=== PATIENT | female | born 1985 | race Caucasian/White ===

== ENCOUNTER 2016-12-13 19:06 | Inpatient (IN) | payer SELFPAY ==
[~2016-12-13] VITALS: Ht 152.4 cm; Wt 120.1 kg
[~2016-12-13 19:06] MED LIST: AMLO5TAB22 PO; HYDR50TA15 PO; NAPR-573 PO
[2016-12-13 19:19] VITALS: BP 246/159; PULSE 113; RESP 18; TEMP 100.6; O2SAT 96
[2016-12-13 19:51] VITALS: BP 242/110; PULSE 108; RESP 18; TEMP 98.5; O2SAT 96
[2016-12-13] MEDS ORDERED: LISI-515 PO (20:10)
[2016-12-13] MEDS ORDERED: HYDR50TA15 PO (20:10)
[2016-12-13] MEDS ORDERED: METO50TA PO (20:10)
[2016-12-13] MEDS ORDERED: SERT25TA83 PO (20:10)
[2016-12-13] MEDS ORDERED: METF500T PO (20:10)
[2016-12-13] MEDS ORDERED: cloNIDine HCL 0.2 MG TAB PO ONE (20:30)
[2016-12-13 21:09] VITALS: BP 227/96; PULSE 110; RESP 18; O2SAT 98
[2016-12-13 21:10] LABS: BLOOD, URINE NEG (NEG); GLUCOSE,URINE NEG (NEG); KETONE, URINE NEG (NEG); NITRITE,URINE NEG (NEG)
[2016-12-13 21:11] LABS: AUTOMATED NEUTROPHIL # 4.3 TH/MM3 (1.8-7.7); BASOPHIL % 0.5 % (0.0-2.0); EOSINOPHIL # 0.1 TH/MM3 (0-0.4); EOSINOPHIL % 1.3 % (0.0-4.0); HEMATOCRIT 34.6 % (35.0-46.0); LYMPHOCYTE # 0.7 TH/MM3 (1.0-4.8); MEAN CELL VOLUME 67.9 FL (80.0-100.0); MEAN CORPUSCULAR HEMOGLOBIN 22.1 PG (27.0-34.0); MEAN CORPUSCULAR HGB CONC 32.6 % (32.0-36.0); MONO % 9.3 % (0.0-8.0); NEUT % 76.9 % (16.0-70.0); PLATELET COUNT 192 TH/MM3 (150-450); RED CELL DISTRIBUTION WIDTH 17.2 % (11.6-17.2); WHITE BLOOD COUNT 5.6 TH/MM3 (4.0-11.0)
[2016-12-13 21:14] LABS: HEMO FLAGS AUTO DIFF
[2016-12-13] MEDS ORDERED: ACETAMINOPHEN/HYDROcodone 325 MG/5 MG TAB PO ONE (21:15)
--- NOTE | 2016-12-13 21:15 | RADHPO ---
EXAM DATE/TIME: 12/13/2016 20:33 [facility] COMPARISON: No previous studies available for comparison. INDICATIONS : Patient states cough and congestion. MEDICAL HISTORY : Hypertension. SURGICAL HISTORY : None. ENCOUNTER: Initial ACUITY: 3 days PAIN SCORE: 1/10 LOCATION: Bilateral chest FINDINGS: A single view of the chest demonstrates the lungs to be symmetrically aerated without evidence of mas s, infiltrate or effusion. The cardiomediastinal contours are unremarkable. Osseous structures are intact. CONCLUSION: No acute disease. Jonh Gregory MD FACR on December 13, 2016 at 21:13 Board Certified Radiologist. This report was verified electronically.
[2016-12-13 21:20] LABS: BICARBONATE 29.4 MEQ/L (21.0-32.0); MAGNESIUM 1.7 MG/DL (1.5-2.5)
[2016-12-13 21:22] LABS: URINE COLOR YELLOW (YELLW/STRAW)
[2016-12-13 21:23] LABS: COMMENT (UR) CULT NOT INDICATED; CULTURE IF INDICATED CULT NOT INDICATED; SQUAMOUS EPITHELIAL CELL URINE 0-5 /hpf (0-5); WBC, URINE 0-2 /hpf (0-5)
[2016-12-13] MEDS ORDERED: POTASSIUM CHLORIDE 10 MEQ CONTROLLED RELEASE TAB PO ONE (21:30)
[2016-12-13 21:34] LABS: SCAN/DIFF AUTO DIFF CONFIRMED
[2016-12-13] MEDS ORDERED: hydrALAZINE HCL 50 MG TAB PO ONE (21:45)
--- NOTE | 2016-12-13 21:50 | PD ---
HPI Chief Complaint: Cold / Flu Symptoms Time Seen by Provider: 20:16 Travel History International Travel<30 days: No Contact w/Intl Traveler<30days: No Traveled to known affect area: No History of Present Illness HPI This 31-year-old female says she is at some pressure in her chest and sore throat for throughout the day. She has a history of hypertension since he age of 2. She is on 3 medications now and says she will be taking them. He is having some sinus congestion and headache. She does not smoke. She has no history of heart disease. She has had this pressure in her chest past. Does not seem aggravated by exertion. There is no radiation. There is been no diaphoresis PFSH Past Medical History Depression: Yes Cardiovascular Problems: Yes Diabetes: No Diminished Hearing: No Hypertension: Yes (SINCE CHILDHOOD) Reproductive: Yes (POLYCYSTIC OVARIAN SYNDROME) Immunizations Current: Yes Migraines: Yes (FROM CHILDHOOD) Tetanus Vaccination: Unknown Influenza Vaccination: No ?: Not LMP: 2 WEEKS AGO : 0 Ovarian Cysts: Yes Social History Alcohol Use: No Tobacco Use: No Substance Use: No Allergies-Medications (Allergen,Severity, Reaction): Coded Allergies: No Known Allergies (Verified , 12/13/16) Reported Meds & Prescriptions Reported Meds & Active Scripts Active Reported Metoprolol Tartrate 50 Mg Tab 50 Mg PO BID Sertraline (Sertraline HCl) 25 Mg Tab 25 Mg PO DAILY Metformin (Metformin HCl) 500 Mg Tab 500 Mg PO BIDPC With meals Lisinopril 20 Mg Tab 20 Mg PO DAILY Hydralazine (Hydralazine HCl) 50 Mg Tab 50 Mg PO TID Take with a meal Review of Systems General / Constitutional: No: Fever, Chills Eyes: No: Diploplia HENT: Positive: Sore Throat, No: Headaches Cardiovascular: Positive: Chest Pain or Discomfort Respiratory: Positive: Cough, No: Shortness of Breath Gastrointestinal: No: Nausea, Vomiting Genitourinary: No: Urgency, Frequency Musculoskeletal: No: Myalgias Physical Exam Narrative GENERAL: Well-developed female initial blood pressure is 246/159 SKIN: Warm and dry. HEAD: Atraumatic. Normocephalic. EYES: Pupils equal and round. No scleral icterus. No injection or drainage. ENT: No nasal bleeding or discharge. Mucous membranes pink and moist. NECK: Trachea midline. No JVD. CARDIOVASCULAR: Regular rate and rhythm. No murmur appreciated. RESPIRATORY: No accessory muscle use. Clear to auscultation. Breath sounds equal bilaterally. GASTROINTESTINAL: Abdomen soft, non-tender, nondistended. Hepatic and splenic margins not palpable. MUSCULOSKELETAL: No obvious deformities. No clubbing. No cyanosis. No edema. NEUROLOGICAL: Awake and alert. No obvious cranial nerve deficits. Motor grossly within normal limits. Normal speech. PSYCHIATRIC: Appropriate mood and affect; insight and judgment normal. Data Data Last Documented VS Vital Signs Date Time Temp Pulse Resp B/P Pulse Ox O2 Delivery O2 Flow Rate FiO2 12/13/16 21:09 110 18 227/96 98 Room Air 12/13/16 19:51 98.5 Orders Electrocardiogram (12/13/16 20:18) Complete Blood Count With Diff (12/13/16 20:18) Basic Metabolic Panel (Bmp) (12/13/16 20:18) Troponin I (12/13/16 20:18) B-Type Natriuretic Peptide (12/13/16 20:18) Urinalysis - C+S If Indicated (12/13/16 20:18) Magnesium (Mg) (12/13/16 20:18) Chest, Single Ap (12/13/16 20:18) Clonidine (Catapres) (12/13/16 20:30) Acetamin-Hydrocod 325-5 Mg ([place] 5-325 (12/13/16 21:15) Potassium Chloride (Kcl) (12/13/16 21:30) Hydralazine (Apresoline) (12/13/16 21:45) Labs Laboratory Tests Test 12/13/16 12/13/16 21:00 21:05 Urine Color YELLOW Urine Turbidity CLEAR Urine pH 6.0 Urine Specific [place] 1.020 Urine Protein 100 mg/dL Urine Glucose (UA) NEG mg/dL Urine Ketones NEG mg/dL Urine Occult Blood NEG Urine Nitrite NEG Urine Bilirubin NEG Urine Leukocyte Esterase TRACE Urine WBC 0-2 /hpf Urine Squamous Epithelial 0-5 /hpf Cells Microscopic Urinalysis Comment CULT NOT INDICATED White Blood Count 5.6 TH/MM3 Red Blood Count 5.10 MIL/MM3 Hemoglobin 11.3 GM/DL Hematocrit 34.6 % Mean Corpuscular Volume 67.9 FL Mean Corpuscular Hemoglobin 22.1 PG Mean Corpuscular Hemoglobin 32.6 % Concent Red Cell Distribution Width 17.2 % Platelet Count 192 TH/MM3 Mean Platelet Volume 8.8 FL Neutrophils (%) (Auto) 76.9 % Lymphocytes (%) (Auto) 12.0 % Monocytes (%) (Auto) 9.3 % Eosinophils (%) (Auto) 1.3 % Basophils (%) (Auto) 0.5 % Neutrophils # (Auto) 4.3 TH/MM3 Lymphocytes # (Auto) 0.7 TH/MM3 Monocytes # (Auto) 0.5 TH/MM3 Eosinophils # (Auto) 0.1 TH/MM3 Basophils # (Auto) 0.0 TH/MM3 CBC Comment AUTO DIFF Differential Comment AUTO DIFF CONFIRMED Sodium Level 138 MEQ/L Potassium Level 3.0 MEQ/L Chloride Level 100 MEQ/L Carbon Dioxide Level 29.4 MEQ/L Anion Gap 9 MEQ/L Blood Urea Nitrogen 15 MG/DL Creatinine 0.93 MG/DL Estimat Glomerular Filtration 70 ML/MIN Rate Random Glucose 161 MG/DL Calcium Level 8.6 MG/DL Magnesium Level 1.7 MG/DL Troponin I 0.06 NG/ML B-Type Natriuretic Peptide 135 PG/ML [facility] Medical Decision Making Medical Screen Exam Complete: No Emergency Medical Condition: No Medical Record Reviewed: No Differential Diagnosis Differential includes CHF, hypertension, URI Narrative Course Chest x-rays read as negative. EKG shows sinus rhythm. There is left ventricular hypertrophy with ST T-wave changes. Her potassium is low at 3.0. She was given clonidine and her blood pressures come down to 185/95. Of note her troponin is 0.06. Diagnosis Primary Impression: Hypertension Qualified Code: I10 - Essential hypertension Additional Impression: Elevated troponin Toan Watson MD Dec 13, 2016 21:50
[2016-12-13] MEDS ORDERED: ACETAMINOPHEN 325 MG TAB PO PRN (22:30)
[2016-12-13] MEDS ORDERED: cloNIDine HCL 0.1 MG TAB PO PRN (22:30)
[2016-12-13] MEDS ORDERED: ZOLPIDEM TARTRATE 5 MG TAB PO PRN (22:30)
[2016-12-13] MEDS ORDERED: NALOXONE HCL 0.4 MG/ML AMP IV PRN (22:30)
[2016-12-13] MEDS ORDERED: SENNOSIDES 8.6 MG TAB PO PRN (22:30)
[2016-12-13] MEDS ORDERED: SODIUM CHLORIDE 0.9% FLUSH 5 ML FLUSH FLUSH PRN (22:30)
[2016-12-13] MEDS ORDERED: ONDANSETRON HCL 4 MG/2 ML VIAL IVP PRN (22:30)
[2016-12-13 22:38] VITALS: BP 136/94; PULSE 93; RESP 18; O2SAT 96
[2016-12-13 23:09] LABS: AMPHETAMINE, URINE NEG (NEG); BARBITURATES, URINE NEG (NEG)
[2016-12-13 23:10] LABS: COCAINE, URINE NEG (NEG)
[2016-12-13] MEDS: NITROGLYCERIN 2% OINT 1 GM PACKET TOPICAL SCH (23:30)
[2016-12-14] VITALS (8 sets, daily range): BP systolic 124–210; BP diastolic 77–96; PULSE 84–104; RESP 15–18; TEMP 98.1–99.3; O2SAT 96–98
[2016-12-14] MEDS: MENTHOL LOZENGE BUCCAL PRN ×4 (01:06→21:38)
[2016-12-14] MEDS: ACETAMINOPHEN 325 MG TAB PO PRN ×4 (01:06→13:28)
[2016-12-14 03:30] LABS: POTASSIUM 3.2 MEQ/L (3.5-5.1)
[2016-12-14 03:33] LABS: BICARBONATE 28.5 MEQ/L (21.0-32.0); MAGNESIUM 1.9 MG/DL (1.5-2.5)
[2016-12-14] MEDS: NITROGLYCERIN 2% OINT 1 GM PACKET TOPICAL SCH ×3 (05:47→17:48)
[2016-12-14] MEDS ORDERED: POTASSIUM CL 40 MEQ/30 ML LIQ UDC PO ONE (08:15)
[2016-12-14] MEDS: BENZONATATE 100 MG CAP PO PRN (08:56)
[2016-12-14] MEDS: SODIUM CHLORIDE 0.9% FLUSH 5 ML FLUSH FLUSH SCH ×2 (09:00→21:33)
[2016-12-14] MEDS ORDERED: DEXTROSE 50% IN WATER 50 ML VIAL(D50) IV PUSH PRN (12:45)
[2016-12-14] MEDS ORDERED: GLUCAGON 1 MG/ML VIAL OTHER PRN (12:45)
[2016-12-14] MEDS ORDERED: ACETAMINOPHEN 500 MG CPLT PO PRN (12:45)
[2016-12-14] MEDS ORDERED: PILL SPLITTER OTHER PRN (13:00)
[2016-12-14] MEDS: metFORMIN HCL 500 MG TAB PO SCH ×2 (13:07→18:15)
[2016-12-14] MEDS: hydrALAZINE HCL 50 MG TAB PO SCH ×2 (13:07→18:14)
[2016-12-14] MEDS: LISINOPRIL 20 MG TAB PO SCH (13:07)
[2016-12-14] MEDS: SERTRALINE HCL 50 MG TAB PO SCH (13:07)
[2016-12-14] MEDS: METOPROLOL TARTRATE 50 MG TAB PO SCH ×2 (13:07→21:33)
[2016-12-14] MEDS: AZITHROMYCIN INJ 500 MG in SODIUM CHLOR 0.9% 250 ML INJ 250 ML IV SCH (13:07)
--- NOTE | 2016-12-14 13:18 | MH ---
cc: JOSE DIANA MD DATE OF ADMISSION: 12/14/2016 CHIEF COMPLAINT Cough, congestion and chest pressure. HISTORY OF PRESENT ILLNESS This is a 31-year female with a past medical and surgical history significant for hypertension, depression, polycystic ovarian syndrome, obesity, migraine headaches, who came to the ER at [facility] complaining of chest pressure, also had some sore throat, cough and congestion. She is saying that the pressure is left-sided with no radiation. She denies any worsening factors or anything that makes it better. She said that she has some sinus congestion and headache. She does not smoke. She denies any fever or chills, denies any abdominal pain, nausea, vomiting, diarrhea, constipation or any other symptoms. Other than that nothing significant. PAST MEDICAL HISTORY As dictated above. PAST SURGICAL HISTORY Nothing significant. SOCIAL HISTORY Denies smoking, drinking or taking any drugs. Lives at home. FAMILY HISTORY Nothing significant. ALLERGIES No known drug allergies. MEDICATIONS 1. Metoprolol 50 mg twice a day. 2. Sertraline 25 mg p.o. daily. 3. Metformin 500 mg p.o. b.i.d. 4. Lisinopril 20 mg p.o. daily. 5. Hydralazine 50 mg p.o. t.i.d. REVIEW OF SYSTEMS Positive for mild chest pressure, cough, congestion, sinus pressure. All other review of systems are negative. PHYSICAL EXAMINATION GENERAL: This is a 31-year-old female lying on the bed, not in acute distress. VITAL SIGNS: Temperature 99.3, heart rate 89, respirations 15, blood pressure 210/90. O2 saturation 96% on room air. HEENT: Normocephalic, atraumatic. EOMI. PERRL. Oral mucosa moist. NECK: Supple. No visible thyromegaly or neck mass. Trachea central. CARDIOVASCULAR: Regular rate and rhythm. LUNGS: Respiration is clear to auscultation bilaterally. ABDOMEN: Soft, nontender. Bowel sounds audible. EXTREMITIES: No cyanosis or clubbing. Full range of motion of all extremities. NEUROLOGIC: Awake, alert, oriented x4. No focal deficits. SKIN: Warm and dry. PSYCHIATRIC: The patient is cooperative. Mood and affect are normal. LABORATORY DATA CBC is remarkable for hemoglobin 11.3 low, hematocrit 34.6 low, MCV 67.9 low, MCHC 22.1 low, neutrophils 76.9 high, monos 9.3 high. BNP is remarkable for potassium 3.2 low, GFR 84 low, glucose 170 high, calcium 8.1 low, magnesium 1.9. Troponin-I 0.06 high, other troponin of 0.05 and 0.04. BNP 135 high. Urine tox screen is negative. Urinalysis shows high protein, trace leukocyte esterase. IMAGING DATA Chest x-ray shows no acute disease. ASSESSMENT AND PLAN 1. This is a 31-year-old female who came to the ER diagnosed with chest pain, rule out acute coronary syndrome. Cardiac enzymes are noted. The patient is started on aspirin 325 mg p.o. daily and also nitroglycerin. Cardiology is consulted. Further recommendation per cardiology. 2. Cough, congestion, most likely acute bronchitis. I will start the patient on Zithromax 500 mg IV daily. 3. History of hypertension. Continue home medication. 4. Depression. Continue home medication. 5. Diabetes mellitus. ADA 1800 calorie diet. NovoLog low-dose sliding scale. Check blood sugar a.c. and h.s. 6. DVT prophylaxis. Heparin 5000 units subcutaneous twice a day. 7. GI prophylaxis. Protonix 40 mg p.o. daily. 8. We are going to manage the patient on a daily basis and make recommendations on a daily basis. Jose Diana MD EA/KENDRICK /12:32 PM /12:42 PM
[2016-12-14] MEDS: [UNRECOGNIZED DRUG - OTHER] SQ SCH ×2 (16:00→21:00)
[2016-12-14] MEDS: ACETAMINOPHEN/HYDROcodone 325 MG/5 MG TAB PO PRN ×2 (18:15→21:38)
--- NOTE | 2016-12-14 18:37 | EKG ---
Date Performed: 12/14/2016 Time Performed: 05:37:28 PTAGE: 31 years EKG: Sinus rhythm Left ventricular hypertrophy Inferior/lateral ST-T changes are probably due to ventricular hypertrop hy Abnormal ECG PREVIOUS TRACING : 12/13/2016 20.18 Since previous tracing, no significant change noted DOCTOR: Jeri Herbert Interpretating Date/Time 12/14/2016 18:36:33
--- NOTE | 2016-12-14 18:37 | EKG ---
Date Performed: 12/13/2016 Time Performed: 20:18:52 PTAGE: 31 years EKG: Sinus tachycardia LVH with secondary repolarization abnormality Inferior/lateral ST-T chin es are probably due to ventricular hypertrophy Abnormal ECG PREVIOUS TRACING : 03/30/2015 17.08 Since previous tracing, no significant change noted DOCTOR: Jeri Herbert Interpretating Date/Time 12/14/2016 18:36:13
--- NOTE | 2016-12-14 19:00 | EC ---
Study Study Date:12/14/2016 STUDY CONCLUSIONS SUMMARY - Procedure narrative: Transthoracic echocardiography. Image quality was fair. Scanning was performed from the parasternal, apical, and subcostal acoustic windows. - Left ventricle: The cavity size was normal. Wall thickness was increased in a pattern of mild LVH. Systolic function was normal. The estimated ejection fraction was in the range of 55% to 60%. Wall motion was normal; there were no regional wall motion abnormalities. - Tricuspid valve: Trace regurgitation. - Pulmonary arteries: PA peak pressure: 37mm Hg (S). If LV function is below 40, please consider prescribing an ACEI or ARB or document rationale for non-use. PROCEDURE DATA STUDY STATUS: Elective. Procedure: Transthoracic echocardiography. Image quality was fair. Scanning was performed from the parasternal, apical, and subcostal acoustic windows. Study completion: The patient tolerated the procedure well. Transthoracic echocardiography. M-mode, complete 2D, complete spectral Doppler, and color Doppler. Height: Height: 60in. Weight: Weight: 263.5lb. Body mass index: BMI: 51.6kg/m^2. Body surface area: BSA: 2.1m^2. Patient status: Inpatient. CARDIAC ANATOMY LEFT VENTRICLE: The cavity size was normal. Wall thickness was increased in a pattern of mild LVH. Systolic function was normal. The estimated ejection fraction was in the range of 55% to 60%. Wall motion was normal; there were no regional wall motion abnormalities. AORTIC VALVE: Trileaflet; normal thickness leaflets. Doppler: Transvalvular velocity was within the normal range. There was no stenosis. No regurgitation. Indexed valve area: 1.01cm^2/m^2 (VTI). Indexed valve area: 0.86cm^2/m^2 (Vmax). Mean gradient: 7mm Hg (S). Peak gradient: 11mm Hg (S). AORTA: Aortic root: The aortic root was normal in size. MITRAL VALVE: Structurally normal valve. Doppler: Transvalvular velocity was within the normal range. There was no evidence for stenosis. No regurgitation. Peak gradient: 6mm Hg (D). LEFT ATRIUM: The atrium was normal in size. RIGHT VENTRICLE: The cavity size was normal. Wall thickness was normal. PULMONIC VALVE: Doppler: Transvalvular velocity was within the normal range. There was no evidence for stenosis. No regurgitation. TRICUSPID VALVE: Structurally normal valve. Doppler: Transvalvular velocity was within the normal range. Trace regurgitation. PULMONARY ARTERY: The main pulmonary artery was normal-sized. Systolic pressure was within the normal range. RIGHT ATRIUM: The atrium was normal in size. PERICARDIUM: There was no pericardial effusion. SYSTEMIC VEINS: Inferior vena cava: The vessel was normal in size. Patient weight: 263.5lb _Ejection fraction:_ 65-75% _Fractional shortening:_ 32% up to 5Kg 5-11.5Kg 11.6-22.9Kg 23-45Kg 45-57Kg Aortic Root 7-13 <17 13-22 17-27 17-27 LA diam 6-13 <23 24-38 33-47 37-40 RVID 10-17 7-15 7-15 7-18 8-17 LVIDd 12-22 <32 24-38 33-47 37-40 LVPW 2-4 3-6 5-7 6-8 7-8 IVS 2-4 3-6 5-7 6-8 7-8 BASIC MEASUREMENTS ADULT NORMAL Left ventricle LV internal dimension, ED, chordal 46 mm 43-52 level, PLAX LV internal dimension, ES, chordal 30.9 mm 23-38 level, PLAX Fractional shortening, chordal level, 33 % >29 PLAX LV posterior wall thickness, ED 11.9 mm IVS/LVPW ratio, ED 0.97 <1.3 Ventricular septum Septal thickness, ED 11.6 mm Aortic valve Leaflet separation 17 mm 15-26 Aorta Root diameter, ED 32 mm Left atrium Anterior-posterior dimension 39 mm Anterior-posterior dimension index 1.86 cm/m^2 <2.2 BASIC MEASUREMENTS ADULT NORMAL Aortic valve Leaflet separation 17 mm 15-26 DOPPLER MEASUREMENTS ADULT NORMAL Main pulmonary artery Pressure, S *37 mm Hg =30 Aortic valve Peak velocity, S 168 cm/s Mean velocity, S 121 cm/s VTI, S 27.9 cm Mean gradient, S 7 mm Hg Peak gradient, S 11 mm Hg Valve area index, VTI 1.01 cm^2/m^2 Valve area index, Vmax 0.86 cm^2/m^2 Mitral valve Peak E-wave velocity 125 cm/s Peak A-wave velocity 81.4 cm/s Peak gradient, D 6 mm Hg Peak E/A ratio 1.5 Tricuspid valve Regurgitant peak velocity 292 cm/s Peak RV-RA gradient, S 34 mm Hg Maximal regurgitant velocity 292 cm/s Systemic veins Estimated CVP 5 mm Hg Right ventricle RV pressure, S *39 mm Hg <30 Pulmonic valve Peak velocity, S 64.2 cm/s LEGEND: Mean values are shown as u=mean value. Asterisk (*) dixon values outside specified normal range. Prepared and signed by Denzel Fajardo [id number]
[2016-12-15] VITALS (8 sets, daily range): BP systolic 160–205; BP diastolic 86–125; PULSE 80–104; RESP 16–20; TEMP 96.7–99; O2SAT 95–98
[2016-12-15] MEDS: cloNIDine HCL 0.1 MG TAB PO PRN ×2 (00:46→11:47)
[2016-12-15] MEDS: NITROGLYCERIN 2% OINT 1 GM PACKET TOPICAL SCH ×4 (00:46→16:25)
--- NOTE | 2016-12-15 06:12 | MB ---
cc: BERTA GOMEZ M.D. DATE OF CONSULTATION: 12/14/2016 REASON FOR CONSULTATION: Chest pain, abnormal troponin level HISTORY OF PRESENT ILLNESS The patient is a 31-year-old white female with a history of hypertension, polycystic ovarian syndrome, migraine headaches who presented to the emergency room yesterday with complaints of chest discomfort. Yesterday she had a substernal chest "pressure" all day in a constant fashion associated with shortness of breath and nonproductive cough. Recently she reports subjective fever, "congestion," and a sore throat. Sometime this morning (approximately 24 hours later) the chest discomfort completely resolved. The patient denies pleurisy, lightheadedness, syncope, near-syncope, palpitations, change in chronic pedal edema. At times in the last two to three nights she has awoke short of breath, possibly from paroxysms of cough. PAST MEDICAL HISTORY As above. PAST SURGICAL HISTORY None HER CARDIAC MEDICATIONS medications at home 1. Metoprolol 50 mg b.i.d. 2. Lisinopril 20 mg daily. 3. Hydralazine 50 mg t.i.d. ALLERGIES NO KNOWN DRUG ALLERGIES. FAMILY HISTORY There is no significant family history of early myocardial infarction. SOCIAL HISTORY The patient denies alcohol or tobacco abuse. REVIEW OF SYSTEMS Review of systems as in the history of present illness otherwise negative or noncontributory. She also denies headache, melena, dyspepsia, bright red blood per rectum, hematemesis, hemoptysis. PHYSICAL EXAMINATION: VITAL SIGNS: On physical examination her blood pressure 142/90 with a pulse of 84, respirations 15. IN GENERAL: She is a well-developed, well-nourished white female in no acute distress. HEAD, EYES, EARS, NOSE, AND THROAT: Jugular venous pressure is normal. Carotid pulses are 2+ bilaterally and without bruits. CHEST: Examination of the chest reveals clear lung murray. CARDIAC: On cardiac examination she has a regular rhythm and rate without S3-S4 murmur or rub. ABDOMEN: On abdominal examination she has a soft, obese, nontender abdomen. Bowel sounds are present. There is no definite hepatosplenomegaly. EXTREMITIES: Examination of the extremities reveals no clubbing or cyanosis. There is trace pretibial edema bilaterally. LABORATORY DATA: Laboratory data includes troponin 0.06, BUN 13, creatinine 0.79, potassium 3.2, magnesium 1.9, WBC 5.6, hemoglobin 11.3, platelets 192. RADIOLOGIC: Chest x-ray Shows no acute disease. EKG shows sinus rhythm, lateral T-wave abnormality consider ischemia. IMPRESSION Atypical chest discomfort, slightly abnormal troponin levels in this 31-year-old white female with a history of hypertension, diabetes, polycystic ovarian syndrome, migraine headaches. Despite at least 24 hours of constant chest discomfort, troponin levels are only minimally elevated. The slight elevations in the troponin could be due to elevated blood pressures (246/159 on admission). EKG does show a lateral T-wave changes suggestive of ischemia. Echocardiogram today is unremarkable except for mild concentric left ventricular hypertrophy. RECOMMENDATIONS 1. Check a nuclear stress test to rule out myocardial ischemia. 2. Optimize blood pressure control. 3. We will follow up as needed for any ischemia noted on nuclear stress testing. MD TRAE Perales/karishma /9:02 PM /6:05 AM [email or web address]
[2016-12-15] MEDS: [UNRECOGNIZED DRUG - OTHER] SQ SCH ×4 (07:00→21:42)
[2016-12-15 07:51] LABS: CHLORIDE 107 MEQ/L (98-107); POTASSIUM 3.5 MEQ/L (3.5-5.1); SODIUM (NA) 146 MEQ/L (136-145)
[2016-12-15 07:59] LABS: ANION GAP 9 MEQ/L (5-15); BICARBONATE 30.3 MEQ/L (21.0-32.0); BLOOD UREA NITROGEN 11 MG/DL (7-18)
[2016-12-15 08:01] LABS: AUTOMATED NEUTROPHIL # 2.5 TH/MM3 (1.8-7.7); BASOPHIL % 0.3 % (0.0-2.0); EOSINOPHIL # 0.1 TH/MM3 (0-0.4); EOSINOPHIL % 3.2 % (0.0-4.0); HEMATOCRIT 33.2 % (35.0-46.0); LYMPH % 30.2 % (9.0-44.0); LYMPHOCYTE # 1.3 TH/MM3 (1.0-4.8); MEAN CELL VOLUME 68.3 FL (80.0-100.0); MEAN CORPUSCULAR HEMOGLOBIN 21.5 PG (27.0-34.0); MEAN CORPUSCULAR HGB CONC 31.5 % (32.0-36.0); MONO % 11.6 % (0.0-8.0); NEUT % 54.7 % (16.0-70.0); PLATELET COUNT 194 TH/MM3 (150-450); RED BLOOD COUNT 4.85 MIL/MM3 (4.00-5.30); RED CELL DISTRIBUTION WIDTH 17.9 % (11.6-17.2); WHITE BLOOD COUNT 4.4 TH/MM3 (4.0-11.0)
[2016-12-15 08:02] LABS: ALT (GPT) 29 U/L (10-53); AST (GOT) 29 U/L (15-37); GLOMERULAR FILTRATION RATE 91 ML/MIN (>89)
[2016-12-15 08:03] LABS: HEMO FLAGS AUTO DIFF
[2016-12-15 08:04] LABS: TOTAL BILIRUBIN ADULT 0.2 MG/DL (0.2-1.0)
[2016-12-15 08:05] LABS: ALKALINE PHOSPHATASE 80 U/L (45-117)
[2016-12-15] MEDS: metFORMIN HCL 500 MG TAB PO SCH ×2 (08:31→16:24)
[2016-12-15] MEDS: LISINOPRIL 20 MG TAB PO SCH (08:31)
[2016-12-15] MEDS: METOPROLOL TARTRATE 50 MG TAB PO SCH ×2 (08:31→21:41)
[2016-12-15] MEDS: SERTRALINE HCL 50 MG TAB PO SCH (08:31)
[2016-12-15] MEDS: hydrALAZINE HCL 50 MG TAB PO SCH ×3 (08:31→16:24)
[2016-12-15] MEDS: ACETAMINOPHEN/HYDROcodone 325 MG/5 MG TAB PO PRN ×3 (08:37→21:41)
[2016-12-15] MEDS: SODIUM CHLORIDE 0.9% FLUSH 5 ML FLUSH FLUSH SCH ×2 (08:37→21:42)
[2016-12-15 08:53] LABS: PLATELET ESTIMATE SMEAR NORMAL (NORMAL); PLATELET MORPHOLOGY NORMAL (NORMAL); ROULEAUX PRESENT (NORMAL); SCAN/DIFF AUTO DIFF CONFIRMED
[2016-12-15] MEDS ORDERED: INFLUENZA VIRUS VACCINE (QUADRIVALENT) 0.5 ML SYR IM ONE (10:00)
--- NOTE | 2016-12-15 10:51 | HHI.PR ---
Subjective History of Present Illness Patient c/o swollen uvula and sore throat d/w ANDREI Krishnamurthy at bed side. no acute issue. Review of Systems Throat Throat: Sore Throat Throat Remarks swelling of uvula. Vitals/Results Intake & Output 12/14/16 12/14/16 12/15/16 15:00 23:00 07:00 Intake Total 270 ml 1000 ml Balance 270 ml 1000 ml Intake Oral 1000 ml IV Total 270 ml # Voids 4 6 # Bowel Movements 3 Vital Signs Vital Signs Date Time Temp Pulse Resp B/P Pulse Ox O2 Delivery O2 Flow Rate FiO2 12/15/16 09:06 175/115 12/15/16 08:00 99.0 95 20 160/120 96 12/15/16 04:00 96.7 85 16 160/98 95 12/15/16 00:27 98.3 80 16 180/86 97 12/14/16 21:17 98.9 102 18 170/96 98 12/14/16 20:00 104 12/14/16 17:45 98.1 84 15 142/90 98 12/14/16 13:33 98.8 90 18 168/90 96 CBC/BMP: 12/15/16 0733 12/15/16 0733 Lab Results Laboratory Tests Test 12/15/16 07:33 White Blood Count 4.4 TH/MM3 Red Blood Count 4.85 MIL/MM3 Hemoglobin 10.4 GM/DL Hematocrit 33.2 % Mean Corpuscular Volume 68.3 FL Mean Corpuscular Hemoglobin 21.5 PG Mean Corpuscular Hemoglobin 31.5 % Concent Red Cell Distribution Width 17.9 % Platelet Count 194 TH/MM3 Mean Platelet Volume 11.2 FL Neutrophils (%) (Auto) 54.7 % Lymphocytes (%) (Auto) 30.2 % Monocytes (%) (Auto) 11.6 % Eosinophils (%) (Auto) 3.2 % Basophils (%) (Auto) 0.3 % Neutrophils # (Auto) 2.5 TH/MM3 Lymphocytes # (Auto) 1.3 TH/MM3 Monocytes # (Auto) 0.5 TH/MM3 Eosinophils # (Auto) 0.1 TH/MM3 Basophils # (Auto) 0.0 TH/MM3 CBC Comment AUTO DIFF Differential Comment AUTO DIFF CONFIRMED Platelet Estimate NORMAL Platelet Morphology Comment NORMAL Rouleau PRESENT Sodium Level 146 MEQ/L Potassium Level 3.5 MEQ/L Chloride Level 107 MEQ/L Carbon Dioxide Level 30.3 MEQ/L Anion Gap 9 MEQ/L Blood Urea Nitrogen 11 MG/DL Creatinine 0.74 MG/DL Estimat Glomerular Filtration 91 ML/MIN Rate Random Glucose 107 MG/DL Calcium Level 8.2 MG/DL Total Bilirubin 0.2 MG/DL Aspartate Amino Transf 29 U/L (AST/SGOT) Alanine Aminotransferase 29 U/L (ALT/SGPT) Alkaline Phosphatase 80 U/L Total Protein 7.0 GM/DL Albumin 2.9 GM/DL Physical Exam General General Appearance: Well Developed, Well Nourished, No Acute Distress, Comfortable Eyes Eye Exam: Pupils Equal, Pupils Reactive, Sclera White, Extraocular Movement Intact Ears & Nose Ears & Nose Exam: Nasal Mucosa [place] Throat Throat Remarks swelling of uvula. Pharyngeal erythema. Neck Neck Exam: Neck Supple, Trachea Midline Pulmonary Resp Exam: Clear Bilaterally, Breath Sounds Equal, No Distress Cardiology CV Exam: Regular, Normal Sinus Rhythm, Good Perfusion Gastrointestinal/Abdomen GI Exam: Soft, Non-Tender, Bowel Sounds Present Musculoskeletal MS Exam: Joints Intact, Normal Tone Integumentary Skin Exam: Clear, Warm, Dry, Intact, Normal Turgor Extremeties Extremities Exam: No Edema Neurologic Neuro Exam: Alert, Awake, Oriented, Speech Clear, Moving All Extremities, No Focal Deficits Psychiatric Psych Exam: Appropriate Responses VTE Prophylaxis VTE Prophylaxis Device: SCDs PUD Prophylasis PUD Prophylaxis: Protonix Assessment/Plan Assessment/Plan ASSESSMENT AND PLAN 1. This is a 31-year-old female who came to the ER diagnosed with chest pain, rule out acute coronary syndrome. Cardiac enzymes are noted. The patient is on aspirin 325 mg p.o. daily and also nitroglycerin. Cardiology input noted. getting stress test. Further recommendation per cardiology. 2. Cough, congestion, most likely acute bronchitis. the patient on Zithromax 500 mg IV daily. 3. History of hypertension. Continue home medication. 4. Depression. Continue home medication. 5. Diabetes mellitus. ADA 1800 calorie diet. NovoLog low-dose sliding scale. Check blood sugar a.c. and h.s. 6. DVT prophylaxis. Heparin 5000 units subcutaneous twice a day. 7. GI prophylaxis. Protonix 40 mg p.o. daily. 8. swelling of uvula. start Prednisone 50 mg PO Daily. We are going to manage the patient on a daily basis and make recommendations on a daily basis. Discussed Condition with: Patient Jose Villegas MD Dec 15, 2016 10:51
[2016-12-15] MEDS: predniSONE 50 MG TAB PO SCH (11:45)
[2016-12-15] MEDS ORDERED: REGADENOSON INJ 0.4 MG/5 ML SYR IV ONE (12:43)
[2016-12-15] MEDS: AZITHROMYCIN INJ 500 MG in SODIUM CHLOR 0.9% 250 ML INJ 250 ML IV SCH (13:23)
[2016-12-15] MEDS: MENTHOL LOZENGE BUCCAL PRN (15:31)
[2016-12-15] MEDS: ENALAPRILAT 1.25 MG/ML VIAL IV PUSH PRN (16:25)
[2016-12-15] MEDS ORDERED: cloNIDine HCL 0.2 MG TAB PO ONE (19:30)
[2016-12-15] MEDS: BENZONATATE 100 MG CAP PO PRN (21:41)
[2016-12-16] VITALS: BP 166/72; PULSE 73; RESP 18; TEMP 96.5; O2SAT 96
[2016-12-16] MEDS: cloNIDine HCL 0.1 MG TAB PO PRN (01:27)
[2016-12-16 04:00] VITALS: BP 180/98; PULSE 79; RESP 16; TEMP 96.3; O2SAT 100
[2016-12-16] MEDS: ENALAPRILAT 1.25 MG/ML VIAL IV PUSH PRN (05:14)
[2016-12-16] MEDS: BENZONATATE 100 MG CAP PO PRN (05:15)
[2016-12-16] MEDS: NITROGLYCERIN 2% OINT 1 GM PACKET TOPICAL SCH ×3 (05:21→12:40)
[2016-12-16] MEDS: ACETAMINOPHEN/HYDROcodone 325 MG/5 MG TAB PO PRN ×2 (05:32→12:50)
[2016-12-16] MEDS: MENTHOL LOZENGE BUCCAL PRN ×2 (05:32→13:03)
[2016-12-16] MEDS: [UNRECOGNIZED DRUG - OTHER] SQ SCH ×2 (06:11→11:00)
[2016-12-16 08:00] VITALS: BP 175/103; PULSE 66; RESP 20; TEMP 96.4; O2SAT 97
[2016-12-16 08:02] LABS: BASOPHIL % 0.8 % (0.0-2.0); EOSINOPHIL # 0.1 TH/MM3 (0-0.4); EOSINOPHIL % 2.5 % (0.0-4.0); HEMATOCRIT 32.2 % (35.0-46.0); LYMPH % 38.5 % (9.0-44.0); LYMPHOCYTE # 1.6 TH/MM3 (1.0-4.8); MEAN CELL VOLUME 68.9 FL (80.0-100.0); MEAN CORPUSCULAR HEMOGLOBIN 21.6 PG (27.0-34.0); MEAN CORPUSCULAR HGB CONC 31.3 % (32.0-36.0); MONO % 12.8 % (0.0-8.0); NEUT % 45.4 % (16.0-70.0); PLATELET COUNT 207 TH/MM3 (150-450); RED BLOOD COUNT 4.67 MIL/MM3 (4.00-5.30); RED CELL DISTRIBUTION WIDTH 17.8 % (11.6-17.2); WHITE BLOOD COUNT 4.2 TH/MM3 (4.0-11.0)
[2016-12-16 08:05] LABS: CHLORIDE 103 MEQ/L (98-107); HEMO FLAGS AUTO DIFF; POTASSIUM 3.3 MEQ/L (3.5-5.1); SODIUM (NA) 140 MEQ/L (136-145)
[2016-12-16 08:13] LABS: ANION GAP 8 MEQ/L (5-15); BICARBONATE 28.8 MEQ/L (21.0-32.0); BLOOD UREA NITROGEN 14 MG/DL (7-18)
[2016-12-16 08:16] LABS: ALT (GPT) 27 U/L (10-53); AST (GOT) 22 U/L (15-37); GLOMERULAR FILTRATION RATE 99 ML/MIN (>89)
[2016-12-16 08:17] LABS: TOTAL BILIRUBIN ADULT 0.3 MG/DL (0.2-1.0)
[2016-12-16 08:19] LABS: ALKALINE PHOSPHATASE 72 U/L (45-117)
[2016-12-16 08:26] LABS: PLATELET ESTIMATE SMEAR NORMAL (NORMAL); PLATELET MORPHOLOGY NORMAL (NORMAL); ROULEAUX PRESENT (NORMAL); SCAN/DIFF AUTO DIFF CONFIRMED
[2016-12-16 09:55] VITALS: PULSE 105
[2016-12-16] MEDS: predniSONE 50 MG TAB PO SCH (09:59)
[2016-12-16] MEDS: hydrALAZINE HCL 50 MG TAB PO SCH ×2 (09:59→12:41)
[2016-12-16] MEDS: METOPROLOL TARTRATE 50 MG TAB PO SCH (09:59)
[2016-12-16] MEDS: SERTRALINE HCL 50 MG TAB PO SCH (09:59)
[2016-12-16] MEDS: LISINOPRIL 20 MG TAB PO SCH (09:59)
[2016-12-16] MEDS: metFORMIN HCL 500 MG TAB PO SCH (09:59)
[2016-12-16] MEDS: SODIUM CHLORIDE 0.9% FLUSH 5 ML FLUSH FLUSH SCH (10:00)
--- NOTE | 2016-12-16 10:21 | RADHPO ---
EXAM DATE/TIME: 12/15/2016 12:51 [facility] COMPARISON: No previous studies available for comparison. INDICATIONS : Substernal chest pain for 1 day. Angina. DOSE: 30.1 mCi Tc99m Myoview at stress. 29.3 mCi Tc99m Myoview at rest. 0.4 mg Lexiscan STRESS SYMPTOMS: Shortness of breath. EJECTION FRACTION: 48% MEDICAL HISTORY : Hypertension. Polycystic ovarian syndrome. SURGICAL HISTORY : None. ENCOUNTER: Initial ACUITY: 1 day PAIN SCALE: 3/10 LOCATION: Substernal chest TECHNIQUE: The patient underwent pharmacologic stress with infusion of prescribed dose. Continuous ECG tracing was monitored during stress. Gated SPECT imaging was performed after stress and conventional SPECT i maging was performed at rest. The examination was performed on a SPECT/CT scanner, both attenuation and non-corrected datasets were reviewed. FINDINGS: DISTRIBUTION: The maximum perfused segment at stress is in the posterior septal wall. PERFUSION STUDY: The pattern of perfusion at stress is within normal limits. GATED STUDY: There is intact wall motion and thickening without hypokinetic or dyskinetic segments. CONCLUSION: Normal examination except ejection fraction is only 48%. There may be a mild area of hypokinesis of t he septum. RISK CATEGORY: Low (<1% Annual Mortality Rate) Deejay Fowler MD on December 16, 2016 at 10:19 Board Certified Radiologist. This report was verified electronically.
[2016-12-16 12:00] VITALS: BP 190/107; PULSE 78; RESP 20; TEMP 97.1; O2SAT 98
[2016-12-16] MEDS: AZITHROMYCIN INJ 500 MG in SODIUM CHLOR 0.9% 250 ML INJ 250 ML IV SCH ×2 (12:41→13:00)
--- NOTE | 2016-12-16 13:23 | HHI.PR ---
Subjective History of Present Illness Patient c/o swollen uvula and sore throat d/w ANDREI Kam at bed side. no acute issue. S/P Stress test OK to DC Per cardiology. Review of Systems Throat Throat: Sore Throat Throat Remarks swelling of uvula. Vitals/Results Intake & Output 12/15/16 12/15/16 12/16/16 15:00 23:00 07:00 Intake Total 750 ml 0 ml 0 ml Balance 750 ml 0 ml 0 ml Intake Oral 550 ml IV Total 200 ml 0 ml 0 ml # Voids 2 # Bowel Movements 1 Vital Signs Vital Signs Date Time Temp Pulse Resp B/P Pulse Ox O2 Delivery O2 Flow Rate FiO2 12/16/16 12:00 97.1 78 20 190/107 98 12/16/16 08:00 96.4 66 20 175/103 97 12/16/16 04:00 96.3 79 16 180/98 100 12/16/16 00:00 96.5 73 18 166/72 96 12/15/16 21:09 97.4 98 20 190/96 98 Automatic Cuff 12/15/16 20:00 104 12/15/16 16:00 98.3 96 20 205/110 96 CBC/BMP: 12/16/16 0647 12/16/16 0647 Lab Results Laboratory Tests Test 12/16/16 06:47 White Blood Count 4.2 TH/MM3 Red Blood Count 4.67 MIL/MM3 Hemoglobin 10.1 GM/DL Hematocrit 32.2 % Mean Corpuscular Volume 68.9 FL Mean Corpuscular Hemoglobin 21.6 PG Mean Corpuscular Hemoglobin 31.3 % Concent Red Cell Distribution Width 17.8 % Platelet Count 207 TH/MM3 Mean Platelet Volume 11.4 FL Neutrophils (%) (Auto) 45.4 % Lymphocytes (%) (Auto) 38.5 % Monocytes (%) (Auto) 12.8 % Eosinophils (%) (Auto) 2.5 % Basophils (%) (Auto) 0.8 % Neutrophils # (Auto) 2.0 TH/MM3 Lymphocytes # (Auto) 1.6 TH/MM3 Monocytes # (Auto) 0.5 TH/MM3 Eosinophils # (Auto) 0.1 TH/MM3 Basophils # (Auto) 0.0 TH/MM3 CBC Comment AUTO DIFF Differential Comment AUTO DIFF CONFIRMED Platelet Estimate NORMAL Platelet Morphology Comment NORMAL Rouleau PRESENT Sodium Level 140 MEQ/L Potassium Level 3.3 MEQ/L Chloride Level 103 MEQ/L Carbon Dioxide Level 28.8 MEQ/L Anion Gap 8 MEQ/L Blood Urea Nitrogen 14 MG/DL Creatinine 0.69 MG/DL Estimat Glomerular Filtration 99 ML/MIN Rate Random Glucose 117 MG/DL Calcium Level 8.9 MG/DL Total Bilirubin 0.3 MG/DL Aspartate Amino Transf 22 U/L (AST/SGOT) Alanine Aminotransferase 27 U/L (ALT/SGPT) Alkaline Phosphatase 72 U/L Total Protein 6.8 GM/DL Albumin 2.7 GM/DL Physical Exam General General Appearance: Well Developed, Well Nourished, No Acute Distress, Comfortable Eyes Eye Exam: Pupils Equal, Pupils Reactive, Sclera White, Extraocular Movement Intact Ears & Nose Ears & Nose Exam: Nasal Mucosa [place]re Throat Throat Remarks swelling of uvula. Pharyngeal erythema. Neck Neck Exam: Neck Supple, Trachea Midline Pulmonary Resp Exam: Clear Bilaterally, Breath Sounds Equal, No Distress Cardiology CV Exam: Regular, Normal Sinus Rhythm, Good Perfusion Gastrointestinal/Abdomen GI Exam: Soft, Non-Tender, Bowel Sounds Present Musculoskeletal MS Exam: Joints Intact, Normal Tone Integumentary Skin Exam: Clear, Warm, Dry, Intact, Normal Turgor Extremeties Extremities Exam: No Edema Neurologic Neuro Exam: Alert, Awake, Oriented, Speech Clear, Moving All Extremities, No Focal Deficits Psychiatric Psych Exam: Appropriate Responses VTE Prophylaxis VTE Prophylaxis Device: SCDs PUD Prophylasis PUD Prophylaxis: Protonix Assessment/Plan Assessment/Plan ASSESSMENT AND PLAN 1. This is a 31-year-old female who came to the ER diagnosed with chest pain, rule out acute coronary syndrome. Cardiac enzymes are noted. The patient is on aspirin 325 mg p.o. daily and also nitroglycerin. Cardiology input noted. S/P Stress test OK to AR Per cardiology. 2. Cough, congestion, most likely acute bronchitis. the patient on Zithromax 500 mg IV daily. 3. History of hypertension. Continue home medication. 4. Depression. Continue home medication. 5. Diabetes mellitus. ADA 1800 calorie diet. NovoLog low-dose sliding scale. Check blood sugar a.c. and h.s. 6. DVT prophylaxis. Heparin 5000 units subcutaneous twice a day. 7. GI prophylaxis. Protonix 40 mg p.o. daily. 8. swelling of uvula. start Prednisone 50 mg PO Daily. ok to id home today f/u with PCP/Cardiology 1 week. Discussed Condition with: Patient Jose Villegas MD Dec 16, 2016 13:23
[2016-12-16] MEDS ORDERED: PRED50 PO (13:52)
[2016-12-16] MEDS ORDERED: BENZ100 PO (13:52)
[2016-12-16] MEDS ORDERED: ZITH500T PO (13:52)
[2016-12-16] MEDS ORDERED: AZITHROMYCIN 250 MG TAB PO ONE (15:00)
[2016-12-16] MEDS ORDERED: POTASSIUM CL 40 MEQ/30 ML LIQ UDC PO ONE (15:00)
[2016-12-16 15:14] VITALS: RESP 18
--- NOTE | 2016-12-25 23:01 | MD ---
cc: JOSE DIANA MD ADMISSION DATE: 12/14/2016 DISCHARGE DATE: 12/16/2016 Okay to discharge patient. CONDITION AT THE TIME OF DISCHARGE: Satisfactory. ACTIVITY: As tolerated. DIET: Cardiac diet. ALLERGIES: No known allergies. DISCHARGE MEDICATIONS: 1. Zithromax 500 mg p.o. daily for 7 days. 2. Tessalon Perles 100 mg p.o. t.i.d. for 10 days. 3. Prednisone 50 mg p.o. daily for four days. 4. Hydralazine 50 mg p.o. t.i.d. 5. Lisinopril 20 mg p.o. daily. 6. Metformin 500 mg p.o. b.i.d. 7. Metoprolol 50 mg twice a day. 8. Zoloft 25 mg p.o. daily. ADMITTING DIAGNOSIS: Chest pain, rule out acute coronary syndrome. DISCHARGE DIAGNOSIS: Status post stress test, chest pain ruled out. Okay to NM per cardiology. Cough, congestion, bronchitis. The patient was given Zithromax IV. History of hypertension. History of depression. Diabetes mellitus. Swelling of the uvula. The patient was started on prednisone 50 milligrams p.o. daily. HOSPITAL COURSE: This is a 31 year-old female admitted with the above mentioned complaints and problems, seen by cardiology. She had a stress test done. Okay to NM per cardiology. The patient was given IV antibiotics. The patient remained stable. No acute event happened. The patient's stress test was normal. The patient remained stable during the hospital stay. Patient had a hemoglobin of 10.1 and 10.4. The patient had mild hypokalemia which was replaced during the hospital stay. Further details in the medical record. Jose Diana MD EA/CARMELO /1:55 PM /10:34 PM
== END 2016-12-16 15:26 | disposition home or self-care (01) | DRG 313 ==
LOC: PHED 19:06 → PHEDA 22:14 → PH3A 12-14 00:30 → OBSVTOIN 12-14 10:37
PROVIDERS: ADMIT Family Medicine; ATTEND Family Medicine
DX: R07.89 Other chest pain (principal); I10 Essential (primary) hypertension; J20.9 Acute bronchitis, unspecified; K13.79 Other lesions of oral mucosa; E11.9 Type 2 diabetes mellitus without complications; E28.2 Polycystic ovarian syndrome; I51.7 Cardiomegaly; E87.6 Hypokalemia
CPT/HCPCS: 71010; 78452; 80048; 80053; 80307; 81001; 82948; 83735; 83880; 84484; 84703; 85025; 90471; 90686; 93005; 93017; 93306; A9502; G0008; G0378; J0456; J1815; J2785; J7050; J7512; Q2038

== ENCOUNTER 2017-07-15 21:27 | Emergency (ER) | payer SELFPAY ==
[~2017-07-15] VITALS: Ht 152.4 cm; Wt 124.0 kg
[~2017-07-15 21:27] MED LIST changes: -AMLO5TAB22 PO; +BENZ100 PO; +LISI-515 PO; +METF500T PO; +METO50TA PO; -NAPR-573 PO; +PRED50 PO; +SERT25TA83 PO; +ZITH500T PO
[2017-07-15 21:44] VITALS: BP 216/132; PULSE 102; RESP 16; TEMP 98.7; O2SAT 97
--- NOTE | 2017-07-15 22:06 | PD ---
HPI Chief Complaint: vomiting and diarrhea Time Seen by Provider: 21:57 Travel History International Travel<30 days: No Contact w/Intl Traveler<30days: No Traveled to known affect area: No History of Present Illness HPI This 31-year-old female says she's been sick since last . She's been having watery diarrhea. She's had sporadic vomiting. She's having crampy pain which goes across her abdomen which is quite severe at times. She says she's had about 6 episodes of diarrhea today. She vomited earlier this morning. 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 She has a history of quite severe hypertension, polycystic ovarian syndrome and anxiety. there is been no foreign travel. She says there is no chance of . PFSH Past Medical History Depression: Yes Cardiovascular Problems: Yes Diabetes: No Diminished Hearing: No Hypertension: Yes (SINCE CHILDHOOD) Neurologic: Yes Psychiatric: Yes Reproductive: Yes (POLYCYSTIC OVARIAN SYNDROME) Immunizations Current: Yes Migraines: Yes (FROM CHILDHOOD) : 0 Ovarian Cysts: Yes Social History Alcohol Use: No Tobacco Use: No Substance Use: No Allergies-Medications (Allergen,Severity, Reaction): Coded Allergies: No Known Allergies (Verified , 07/15/17) Reported Meds & Prescriptions Reported Meds & Active Scripts Active Reported Metoprolol Tartrate 50 Mg Tab 50 Mg PO BID Metformin (Metformin HCl) 500 Mg Tab 500 Mg PO BIDPC With meals Lisinopril 20 Mg Tab 20 Mg PO DAILY Hydralazine HCl 25 Mg Tablet 50 Mg PO TID Review of Systems General / Constitutional: No: Fever, Chills Eyes: No: Diploplia, Blurred Vision HENT: No: Headaches, Vertigo Cardiovascular: No: Chest Pain or Discomfort, Palpitations Respiratory: No: Cough, Shortness of Breath Gastrointestinal: Positive: Vomiting, Diarrhea, Abdominal Pain Genitourinary: No: Urgency, Frequency Musculoskeletal: No: Myalgias, Arthralgias Neurologic: No: Weakness Physical Exam Narrative GENERAL: Well-developed female blood pressure is elevated SKIN: Focused skin assessment warm/dry. HEAD: Atraumatic. Normocephalic. EYES: Pupils equal and round. No scleral icterus. No injection or drainage. ENT: No nasal bleeding or discharge. Mucous membranes pink and moist. NECK: Trachea midline. No JVD. CARDIOVASCULAR: Regular rate and rhythm. No murmur appreciated. RESPIRATORY: No accessory muscle use. Clear to auscultation. Breath sounds equal bilaterally. GASTROINTESTINAL: Abdomen obese soft, mild diffuse tenderness without guarding or rigidity. Bowel sounds are active. Hepatic and splenic margins not palpable. MUSCULOSKELETAL: No obvious deformities. No clubbing. No cyanosis. No edema. NEUROLOGICAL: Awake and alert. No obvious cranial nerve deficits. Motor grossly within normal limits. Normal speech. PSYCHIATRIC: Appropriate mood and affect; insight and judgment normal. Data Data Last Documented VS Vital Signs Date Time Temp Pulse Resp B/P Pulse Ox O2 Delivery O2 Flow Rate FiO2 07/15/17 22:21 18 07/15/17 22:18 98.7 92 241/120 97 Orders Complete Blood Count With Diff (07/15/17 22:01) Comprehensive Metabolic Panel (07/15/17 22:01) Enteric Path (Stool) (07/15/17 22:01) Sodium Chlor 0.9% 1000 Ml Inj (Ns 1000 M (07/15/17 22:15) Ondansetron Inj (Zofran Inj) (07/15/17 22:15) Hydromorphone Pf Inj (Dilaudid Pf Inj) (07/15/17 22:15) Hydromorphone Pf Inj (Dilaudid Pf Inj) (07/15/17 23:30) Clonidine (Catapres) (07/15/17 23:30) Potassium Chlor 20 Meq Premix (Kcl 20 Me (07/15/17 23:30) Ct Abd/Pel W Iv Contrast(Rout) (07/15/17 ) Labs Laboratory Tests Test 07/15/17 22:30 White Blood Count 5.7 TH/MM3 Red Blood Count 5.13 MIL/MM3 Hemoglobin 12.3 GM/DL Hematocrit 36.9 % Mean Corpuscular Volume 71.9 FL Mean Corpuscular Hemoglobin 23.9 PG Mean Corpuscular Hemoglobin 33.2 % Concent Red Cell Distribution Width 16.7 % Platelet Count 207 TH/MM3 Mean Platelet Volume 10.4 FL Neutrophils (%) (Auto) 65.5 % Lymphocytes (%) (Auto) 21.7 % Monocytes (%) (Auto) 9.0 % Eosinophils (%) (Auto) 3.6 % Basophils (%) (Auto) 0.2 % Neutrophils # (Auto) 3.8 TH/MM3 Lymphocytes # (Auto) 1.2 TH/MM3 Monocytes # (Auto) 0.5 TH/MM3 Eosinophils # (Auto) 0.2 TH/MM3 Basophils # (Auto) 0.0 TH/MM3 CBC Comment AUTO DIFF Differential Comment AUTO DIFF CONFIRMED Tear Drop Cells 1+ Sodium Level 141 MEQ/L Potassium Level 2.8 MEQ/L Chloride Level 106 MEQ/L Carbon Dioxide Level 27.2 MEQ/L Anion Gap 8 MEQ/L Blood Urea Nitrogen 14 MG/DL Creatinine 0.99 MG/DL Estimat Glomerular Filtration 65 ML/MIN Rate Random Glucose 179 MG/DL Calcium Level 8.7 MG/DL Total Bilirubin 0.2 MG/DL Aspartate Amino Transf 47 U/L (AST/SGOT) Alanine Aminotransferase 57 U/L (ALT/SGPT) Alkaline Phosphatase 102 U/L Total Protein 7.2 GM/DL Albumin 3.3 GM/DL [facility] Medical Decision Making Medical Screen Exam Complete: Yes Emergency Medical Condition: Yes Medical Record Reviewed: Yes Differential Diagnosis Differential includes gastroenteritis, dehydration, hypertension enteritis Narrative Course White count is normal. Patient has been given some IV fluids and a dose of Zofran and Dilaudid. She reports minimal relief with Dilaudid and will be reviewed. Has of the ongoing pain I have ordered a CT scan. She has provided a stool sample for culture. Disposition is pending results of CT scan and further treatment. She has had refractory hypertension past. She's been given additional clonidine Diagnosis Primary Impression: Gastroenteritis Toan Watson MD Jul 15, 2017 22:05
[2017-07-15] MEDS ORDERED: SODIUM CHLOR 0.9% 1000 ML INJ 1,000 ML IV ONE (22:15)
[2017-07-15] MEDS ORDERED: HYDROmorphone HCL PF 1 MG/ML VIAL IV PUSH ONE ×2 (22:15→23:30)
[2017-07-15] MEDS ORDERED: ONDANSETRON HCL 4 MG/2 ML VIAL IV PUSH ONE (22:15)
[2017-07-15] MEDS ORDERED: HYDR-3799 PO (22:16)
[2017-07-15 22:18] VITALS: BP 241/120; PULSE 92; RESP 18; TEMP 98.7; O2SAT 97
[2017-07-15 22:50] LABS: AUTOMATED NEUTROPHIL # 3.8 TH/MM3 (1.8-7.7); BASOPHIL % 0.2 % (0.0-2.0); EOSINOPHIL # 0.2 TH/MM3 (0-0.4); EOSINOPHIL % 3.6 % (0.0-4.0); HEMATOCRIT 36.9 % (35.0-46.0); LYMPH % 21.7 % (9.0-44.0); LYMPHOCYTE # 1.2 TH/MM3 (1.0-4.8); MEAN CELL VOLUME 71.9 FL (80.0-100.0); MEAN CORPUSCULAR HEMOGLOBIN 23.9 PG (27.0-34.0); MEAN CORPUSCULAR HGB CONC 33.2 % (32.0-36.0); NEUT % 65.5 % (16.0-70.0); PLATELET COUNT 207 TH/MM3 (150-450); RED BLOOD COUNT 5.13 MIL/MM3 (4.00-5.30); RED CELL DISTRIBUTION WIDTH 16.7 % (11.6-17.2); WHITE BLOOD COUNT 5.7 TH/MM3 (4.0-11.0)
[2017-07-15 23:09] LABS: HEMO FLAGS AUTO DIFF
[2017-07-15 23:28] LABS: ALKALINE PHOSPHATASE 102 U/L (45-117); ALT (GPT) 57 U/L (10-53); ANION GAP 8 MEQ/L (5-15); AST (GOT) 47 U/L (15-37); BICARBONATE 27.2 MEQ/L (21.0-32.0); BLOOD UREA NITROGEN 14 MG/DL (7-18); CHLORIDE 106 MEQ/L (98-107); GLOMERULAR FILTRATION RATE 65 ML/MIN (>89); SODIUM (NA) 141 MEQ/L (136-145); TOTAL BILIRUBIN ADULT 0.2 MG/DL (0.2-1.0)
[2017-07-15 23:30] LABS: POTASSIUM 2.8 MEQ/L (3.5-5.1)
[2017-07-15] MEDS ORDERED: cloNIDine HCL 0.2 MG TAB PO ONE (23:30)
[2017-07-15] MEDS ORDERED: POTASSIUM CHLOR 20 MEQ PREMIX 100 ML IV ONE (23:30)
[2017-07-15 23:36] LABS: SCAN/DIFF AUTO DIFF CONFIRMED; TEARDROP RBCS 1+ (NORMAL)
[2017-07-15 23:54] VITALS: BP 235/110; PULSE 81; RESP 18; O2SAT 96
[2017-07-16] MEDS ORDERED: IOHEXOL 350 MG/ML 10 ML VIAL (for RAD DIAG) IV ONE (00:22)
--- NOTE | 2017-07-16 00:32 | RADRPT ---
EXAM DATE/TIME: 07/16/2017 00:10 [facility] COMPARISON: No previous studies available for comparison. INDICATIONS : Abdominal pain. Diarrhea. Vomiting. IV CONTRAST: 100 cc Omnipaque 350 (iohexol) IV ORAL CONTRAST: No oral contrast ingested. RADIATION DOSE: 22.34 CTDIvol (mGy) MEDICAL HISTORY : Diabetes mellitus type 2. Hypertension. SURGICAL HISTORY : None. ENCOUNTER: Initial ACUITY: 4 - 6 days PAIN SCALE: 8/10 LOCATION: Bilateral upper quadrant TECHNIQUE: Volumetric scanning of the abdomen and pelvis was performed. Using automated exposure control and ad justment of the mA and/or kV according to patient size, radiation dose was kept as low as reasonably achievable to obtain optimal diagnostic quality images. DICOM format image data is available electro nically for review and comparison. FINDINGS: LOWER LUNGS: The visualized lower lungs are clear. LIVER: Homogeneous density without lesion. There is no dilation of the biliary tree. No calcified gallston es. SPLEEN: Normal size without lesion. PANCREAS: Within normal limits. KIDNEYS: Normal in size and shape. There is no mass, stone or hydronephrosis. ADRENAL GLANDS: Within normal limits. VASCULAR: There is no aortic aneurysm. BOWEL/MESENTERY: No dilated loops of small or large bowel. ABDOMINAL WALL: Within normal limits. RETROPERITONEUM: There is no lymphadenopathy. BLADDER: No wall thickening or mass. REPRODUCTIVE: Anteverted uterus. No evidence of free fluid. INGUINAL: There is no lymphadenopathy or hernia. MUSCULOSKELETAL: Within normal limits for patient age. CONCLUSION: Negative CT abdomen/pelvis with contrast. Michi Conrad MD on July 16, 2017 at 0:28 Board Certified Radiologist. This report was verified electronically.
[2017-07-16] MEDS ORDERED: PROMETHAZINE INJ 25 MG/ML VIAL IM ONE (01:00)
[2017-07-16] MEDS ORDERED: HYDROmorphone HCL PF 2 MG/ML VIAL IVS ONE (01:00)
--- NOTE | 2017-07-16 01:16 | PD ---
Physical Exam Date Seen by Provider: Jul 16, 2017 Narrative GENERAL: SKIN: Warm and dry. HEAD: Atraumatic. Normocephalic. EYES: Pupils equal and round. No scleral icterus. No injection or drainage. ENT: No nasal bleeding or discharge. Mucous membranes pink and moist. NECK: Trachea midline. No JVD. CARDIOVASCULAR: Regular rate and rhythm. RESPIRATORY: No accessory muscle use. Clear to auscultation. Breath sounds equal bilaterally. GASTROINTESTINAL: Abdomen soft, obese, generalized mildy ttp, no rebound/ guarding/rigidity, nondistended. MUSCULOSKELETAL: Extremities without clubbing, cyanosis, or edema. No obvious deformities. NEUROLOGICAL: Awake and alert. No obvious cranial nerve deficits. Motor grossly within normal limits. Five out of 5 muscle strength in the arms and legs. Normal speech. PSYCHIATRIC: Appropriate mood and affect; insight and judgment normal. Data Data Last Documented VS Vital Signs Date Time Temp Pulse Resp B/P Pulse Ox O2 Delivery O2 Flow Rate FiO2 07/15/17 23:54 81 18 235/110 96 Room Air 07/15/17 22:18 98.7 Orders Complete Blood Count With Diff (07/15/17 22:01) Comprehensive Metabolic Panel (07/15/17 22:01) Enteric Path (Stool) (07/15/17 22:01) Sodium Chlor 0.9% 1000 Ml Inj (Ns 1000 M (07/15/17 22:15) Ondansetron Inj (Zofran Inj) (07/15/17 22:15) Hydromorphone Pf Inj (Dilaudid Pf Inj) (07/15/17 22:15) Hydromorphone Pf Inj (Dilaudid Pf Inj) (07/15/17 23:30) Clonidine (Catapres) (07/15/17 23:30) Potassium Chlor 20 Meq Premix (Kcl 20 Me (07/15/17 23:30) Ct Abd/Pel W Iv Contrast(Rout) (07/16/17 00:15) Iohexol 350 Inj (Omnipaque 350 Inj) (07/16/17 00:22) Hydromorphone Pf Inj (Dilaudid Pf Inj) (07/16/17 01:00) Promethazine Inj (Phenergan Inj) (07/16/17 01:00) Labs Laboratory Tests Test 07/15/17 22:30 White Blood Count 5.7 TH/MM3 Red Blood Count 5.13 MIL/MM3 Hemoglobin 12.3 GM/DL Hematocrit 36.9 % Mean Corpuscular Volume 71.9 FL Mean Corpuscular Hemoglobin 23.9 PG Mean Corpuscular Hemoglobin 33.2 % Concent Red Cell Distribution Width 16.7 % Platelet Count 207 TH/MM3 Mean Platelet Volume 10.4 FL Neutrophils (%) (Auto) 65.5 % Lymphocytes (%) (Auto) 21.7 % Monocytes (%) (Auto) 9.0 % Eosinophils (%) (Auto) 3.6 % Basophils (%) (Auto) 0.2 % Neutrophils # (Auto) 3.8 TH/MM3 Lymphocytes # (Auto) 1.2 TH/MM3 Monocytes # (Auto) 0.5 TH/MM3 Eosinophils # (Auto) 0.2 TH/MM3 Basophils # (Auto) 0.0 TH/MM3 CBC Comment AUTO DIFF Differential Comment AUTO DIFF CONFIRMED Tear Drop Cells 1+ Sodium Level 141 MEQ/L Potassium Level 2.8 MEQ/L Chloride Level 106 MEQ/L Carbon Dioxide Level 27.2 MEQ/L Anion Gap 8 MEQ/L Blood Urea Nitrogen 14 MG/DL Creatinine 0.99 MG/DL Estimat Glomerular Filtration 65 ML/MIN Rate Random Glucose 179 MG/DL Calcium Level 8.7 MG/DL Total Bilirubin 0.2 MG/DL Aspartate Amino Transf 47 U/L (AST/SGOT) Alanine Aminotransferase 57 U/L (ALT/SGPT) Alkaline Phosphatase 102 U/L Total Protein 7.2 GM/DL Albumin 3.3 GM/DL [facility] Medical Record Reviewed: Yes Supervised Visit with SHIRLEY: No Narrative Course patient had a ct with no acute findings, labs showed hypokalemia, provided 20meq iv kcl. Diagnosis Primary Impression: Gastroenteritis Additional Impression: Acute hypokalemia Disposition: DISCHARGE HOME Condition: Stable Oral Mendez MD Jul 16, 2017 01:16
[2017-07-16 01:57] VITALS: BP 197/91; PULSE 91; RESP 18; O2SAT 96
[2017-07-16 03:28] VITALS: BP 192/87
[2017-07-16] MEDS ORDERED: CIPR500T2 PO (03:55)
[2017-07-16] MEDS ORDERED: ZOFR4TAB3 SL (03:55)
[2017-07-16] MEDS ORDERED: PERC5TAB12 PO (03:55)
[2017-07-16] MEDS ORDERED: METR-1 PO (03:55)
[2017-08-02] MEDS ORDERED: BUSP10TA PO (11:23)
[2017-08-02] MEDS ORDERED: METO50TA PO (11:36)
[2017-08-02] MEDS ORDERED: HYDR-3800 PO (11:36)
[2017-08-02] MEDS ORDERED: AMLO5 PO (11:36)
[2017-08-02] MEDS ORDERED: HYDR50TA3 PO (11:36)
[2017-08-02] MEDS ORDERED: LISI30TA4 PO ×2 (11:36→11:41)
== END 2017-07-16 03:30 | disposition home or self-care (01) ==
LOC: PHED 21:27
DX: K52.9 Noninfective gastroenteritis and colitis, unspecified (principal); E87.6 Hypokalemia
CPT/HCPCS: 74177; 80053; 85025; 87506; 96361; 96365; 96366; 96372; 96375; 96376; 99285; J1170; J2405; J2550; J3480; J7030; Q9967

== ENCOUNTER 2017-07-23 19:38 | Observation (INO) | payer SELFPAY ==
[~2017-07-23] VITALS: Ht 152.4 cm; Wt 126.1 kg
[~2017-07-23 19:38] MED LIST changes: -BENZ100 PO; +CIPR500T2 PO; +HYDR-3799 PO; -HYDR50TA15 PO; +METR-1 PO; +PERC5TAB12 PO; -PRED50 PO; -SERT25TA83 PO; -ZITH500T PO; +ZOFR4TAB3 SL
[2017-07-23 19:49] VITALS: BP 244/121; PULSE 84; RESP 16; TEMP 98.7; O2SAT 99
[2017-07-23] MEDS ORDERED: PROCHLORPERAZINE INJ 10 MG/2 ML VIAL IV PUSH ONE (20:15)
[2017-07-23] MEDS ORDERED: SODIUM CHLORIDE 0.9% FLUSH 10 ML FLUSH IVF PRN (20:15)
[2017-07-23] MEDS ORDERED: diphenhydrAMINE HCL 50 MG/ML VIAL IV PUSH ONE (20:15)
[2017-07-23] MEDS ORDERED: ASPIRIN 81 MG CHEW TAB PO ONE (20:15)
[2017-07-23] MEDS ORDERED: KETOROLAC TROMETHAMINE 30 MG/ML (IVP) VIAL IV PUSH ONE (20:15)
[2017-07-23 20:27] LABS: AUTOMATED NEUTROPHIL # 6.4 TH/MM3 (1.8-7.7); BASOPHIL # 0.3 TH/MM3 (0-0.2); BASOPHIL % 3.4 % (0.0-2.0); EOSINOPHIL # 0.3 TH/MM3 (0-0.4); EOSINOPHIL % 3.2 % (0.0-4.0); HEMATOCRIT 38.2 % (35.0-46.0); LYMPH % 21.3 % (9.0-44.0); LYMPHOCYTE # 2.1 TH/MM3 (1.0-4.8); MEAN CELL VOLUME 72.3 FL (80.0-100.0); MEAN CORPUSCULAR HEMOGLOBIN 23.7 PG (27.0-34.0); MEAN CORPUSCULAR HGB CONC 32.8 % (32.0-36.0); NEUT % 64.1 % (16.0-70.0); PLATELET COUNT 229 TH/MM3 (150-450); RED BLOOD COUNT 5.28 MIL/MM3 (4.00-5.30); RED CELL DISTRIBUTION WIDTH 16.5 % (11.6-17.2); WHITE BLOOD COUNT 9.9 TH/MM3 (4.0-11.0)
[2017-07-23 20:37] VITALS: BP 227/110; PULSE 78; O2SAT 97
[2017-07-23 20:38] LABS: APTT (PATIENT) 26.4 SEC (24.3-30.1); HEMO FLAGS AUTO DIFF; INTERNATIONAL NORMALIZED RATIO 0.9 RATIO
[2017-07-23 21:05] VITALS: BP 208/111; PULSE 87; RESP 16; O2SAT 98
--- NOTE | 2017-07-23 21:09 | RADRPT ---
EXAM DATE/TIME: 07/23/2017 20:14 [facility] COMPARISON: CHEST SINGLE AP, December 13, 2016, 20:33. INDICATIONS : Chest pain and shortness of breath. MEDICAL HISTORY : Hypertension. SURGICAL HISTORY : None. ENCOUNTER: Initial ACUITY: 2 days PAIN SCORE: 7/10 LOCATION: Bilateral chest FINDINGS: Portable AP view of the chest demonstrates a normal-sized cardiac silhouette. No effusion, consolidat ion, or pneumothorax is visualized. The bones and soft tissues demonstrate no acute abnormality. CONCLUSION: No acute cardiopulmonary abnormality is identified. Marty Hayes MD on July 23, 2017 at 21:07 Board Certified Radiologist. This report was verified electronically.
[2017-07-23 21:14] LABS: PLATELET ESTIMATE SMEAR NORMAL (NORMAL); PLATELET MORPHOLOGY NORMAL (NORMAL); SCAN/DIFF AUTO DIFF CONFIRMED
[2017-07-23 21:20] LABS: ALKALINE PHOSPHATASE 88 U/L (45-117); ALT (GPT) 62 U/L (10-53); ANION GAP 7 MEQ/L (5-15); AST (GOT) 51 U/L (15-37); BICARBONATE 29.6 MEQ/L (21.0-32.0); BLOOD UREA NITROGEN 14 MG/DL (7-18); CHLORIDE 97 MEQ/L (98-107); GLOMERULAR FILTRATION RATE 66 ML/MIN (>89); SODIUM (NA) 134 MEQ/L (136-145); TOTAL BILIRUBIN ADULT 0.3 MG/DL (0.2-1.0)
--- NOTE | 2017-07-23 21:20 | PD ---
HPI Chief Complaint: Chest Pain Time Seen by Provider: 19:58 Travel History International Travel<30 days: No Contact w/Intl Traveler<30days: No Traveled to known affect area: No History of Present Illness HPI Patient is a 31-year-old female with history of migraines and hypertension, who comes in complaining of headache and chest pain. She was here in December for similar symptoms and was found to have a slightly elevated troponin. She is started on several blood pressure medications as it was believed the troponin leak was due to the extreme hypertension. Patient states that her headache started yesterday. She has had migraines in the past, and she says that each one is different. She says she took a Percocet yesterday for the pain, but has not taken anything today. She says she "does not like to take medicine." She is concerned that her migraine might be due to her high blood pressure. She does report compliance with her hypertensive medications. She's had some nausea , but denies blurred vision. She says the pain is in the front of her head and goes to the back. She denies fever or chills. She says the pain to her chest started this morning. She localizes it to the middle of her chest. She does have some shortness of breath. PFSH Past Medical History Depression: Yes Cardiovascular Problems: Yes (HTN) Diabetes: Yes Patient Takes Glucophage: Yes Diminished Hearing: No Gastrointestinal Disorders: Yes Headaches: Yes Hypertension: Yes (SINCE CHILDHOOD) Neurologic: Yes Psychiatric: Yes Reproductive: Yes (POLYCYSTIC OVARIAN SYNDROME) Immunizations Current: Yes Migraines: Yes (FROM CHILDHOOD) ?: Not LMP: 07/08/17 : 0 Ovarian Cysts: Yes Social History Alcohol Use: No Tobacco Use: No Substance Use: No Allergies-Medications (Allergen,Severity, Reaction): Coded Allergies: No Known Allergies (Verified , 07/23/17) Reported Meds & Prescriptions Reported Meds & Active Scripts Active Zofran Odt (Ondansetron Odt) 4 Mg Tab 4 Mg SL Q6HR PRN Percocet (Oxycodone-Acetaminophen) 5-325 mg Tab 1 Tab PO Q6H PRN Flagyl (Metronidazole) 500 Mg Tab 500 Mg PO TID Reported Hydralazine HCl 25 Mg Tablet 50 Mg PO TID Metoprolol Tartrate 50 Mg Tab 50 Mg PO BID Metformin (Metformin HCl) 500 Mg Tab 500 Mg PO BIDPC With meals Lisinopril 20 Mg Tab 20 Mg PO DAILY Review of Systems Except as stated in HPI: all other systems reviewed are Neg General / Constitutional: No: Fever, Chills Eyes: No: Blurred Vision HENT: Positive: Headaches Cardiovascular: Positive: Chest Pain or Discomfort Respiratory: Positive: Shortness of Breath, No: Cough Gastrointestinal: Positive: Nausea, No: Vomiting, Abdominal Pain Musculoskeletal: No: Edema, Pain Skin: No Rash, No Change in Pigmentation Neurologic: No: Weakness, Dizziness Physical Exam Narrative GENERAL: Awake and alert, in no acute distress. SKIN: Focused skin assessment warm/dry. HEAD: Atraumatic. Normocephalic. EYES: Pupils equal and round. No scleral icterus. Extraocular movements intact. ENT: Mucous membranes pink and moist. NECK: Trachea midline. No JVD. CARDIOVASCULAR: Regular rate and rhythm. No murmur appreciated. RESPIRATORY: No accessory muscle use. Clear to auscultation. Breath sounds equal bilaterally. GASTROINTESTINAL: Abdomen soft, non-tender, nondistended. MUSCULOSKELETAL: No obvious deformities. No clubbing. No cyanosis. No edema. NEUROLOGICAL: Awake and alert. No obvious cranial nerve deficits. Motor grossly within normal limits. Normal speech. PSYCHIATRIC: Appropriate mood and affect; insight and judgment normal. Data Data Last Documented VS Vital Signs Date Time Temp Pulse Resp B/P (MAP) Pulse Ox O2 Delivery O2 Flow Rate FiO2 07/23/17 21:05 87 16 208/111 (143) 98 Room Air 07/23/17 19:49 98.7 Orders Orders Ckmb (Isoenzyme) Profile (07/23/17 20:10) Complete Blood Count With Diff (07/23/17 20:10) Comprehensive Metabolic Panel (07/23/17 20:10) Prothrombin Time / Inr (Pt) (07/23/17 20:10) Act Partial Throm Time (Ptt) (07/23/17 20:10) Troponin I (07/23/17 20:10) Chest, Single Ap (07/23/17 20:10) Ecg Monitoring (07/23/17 20:10) Bilateral Bp Monitoring (07/23/17 20:10) Iv Access Insert/Monitor (07/23/17 20:10) Oximetry (07/23/17 20:10) Oxygen Administration (07/23/17 20:10) Aspirin Chew (Aspirin Chew) (07/23/17 20:15) Sodium Chloride 0.9% Flush (Ns Flush) (07/23/17 20:15) Prochlorperazine Inj (Compazine Inj) (07/23/17 20:15) Diphenhydramine Inj (Benadryl Inj) (07/23/17 20:15) Ketorolac Inj (Toradol Inj) (07/23/17 20:15) Ed Urine Pregnancytest Poc (07/23/17 20:10) Potassium Chloride (Kcl) (07/23/17 21:30) Potassium Chlor 20 Meq Premix (Kcl 20 Me (07/23/17 21:30) Mandatory Outpatient Referral (07/23/17 21:52) Hydralazine Inj (Apresoline Inj) (07/23/17 22:15) Labs Laboratory Tests Test 07/23/17 20:15 White Blood Count 9.9 TH/MM3 Red Blood Count 5.28 MIL/MM3 Hemoglobin 12.5 GM/DL Hematocrit 38.2 % Mean Corpuscular Volume 72.3 FL Mean Corpuscular Hemoglobin 23.7 PG Mean Corpuscular Hemoglobin Concent 32.8 % Red Cell Distribution Width 16.5 % Platelet Count 229 TH/MM3 Mean Platelet Volume 10.3 FL Neutrophils (%) (Auto) 64.1 % Lymphocytes (%) (Auto) 21.3 % Monocytes (%) (Auto) 8.0 % Eosinophils (%) (Auto) 3.2 % Basophils (%) (Auto) 3.4 % Neutrophils # (Auto) 6.4 TH/MM3 Lymphocytes # (Auto) 2.1 TH/MM3 Monocytes # (Auto) 0.8 TH/MM3 Eosinophils # (Auto) 0.3 TH/MM3 Basophils # (Auto) 0.3 TH/MM3 CBC Comment AUTO DIFF Differential Comment AUTO DIFF CONFIRMED Platelet Estimate NORMAL Platelet Morphology Comment NORMAL Prothrombin Time 10.0 SEC Prothromb Time International Ratio 0.9 RATIO Activated Partial Thromboplast Time 26.4 SEC Blood Urea Nitrogen 14 MG/DL Creatinine 0.98 MG/DL Random Glucose 152 MG/DL Total Protein 7.6 GM/DL Albumin 3.4 GM/DL Calcium Level 8.8 MG/DL Alkaline Phosphatase 88 U/L Aspartate Amino Transf (AST/SGOT) 51 U/L Alanine Aminotransferase (ALT/SGPT) 62 U/L Total Bilirubin 0.3 MG/DL Sodium Level 134 MEQ/L Potassium Level 2.9 MEQ/L Chloride Level 97 MEQ/L Carbon Dioxide Level 29.6 MEQ/L Anion Gap 7 MEQ/L Estimat Glomerular Filtration Rate 66 ML/MIN Total Creatine Kinase 75 U/L Troponin I LESS THAN 0.02 NG/ML MDM Medical Decision Making Medical Screen Exam Complete: Yes Emergency Medical Condition: Yes Medical Record Reviewed: Yes Interpretation(s) ECG shows normal sinus rhythm at 81, LVH, no ST elevation or depression. There are T-wave inversions in lead 1 and aVL. Differential Diagnosis ACS versus NSTEMI versus STEMI versus migraine versus hypertensive urgency versus hypertensive emergency Narrative Course Patient is a 31-year-old female comes in complaining of headache and chest pain. She has history of migraines, and says that this is similar migraines in the past. Exam shows no acute abdomen is, no neurologic abnormalities. IV established, labs sent. Patient connected to the cardiac cath lab technologist. Patient given Toradol, Compazine, Benadryl. She reports resolution of her headache and feeling much better. Her blood pressure was high on presentation, and is coming down now that her headache is going away. Labs show a potassium of 2.9, this was replaced. Troponin is negative. Patient is morbidly obese. She had a positive troponin in December, and was seen by cardiology at that time. It was felt that the positive troponin is likely due to her blood pressure. Patient was also found to have an enlarged heart. I feel patient should be placed in the chest pain center for further management for chest pain. Patient given a dose of hydralazine for high blood pressure. Diagnosis Primary Impression: Migraine Qualified Codes: G43.009 - Migraine without aura, not intractable, without status migrainosus Additional Impressions: Hypertension Qualified Codes: I10 - Essential (primary) hypertension Chest pain Qualified Codes: R07.9 - Chest pain, unspecified Admitting Information Admitting Physician Requests: Observation Patient Instructions: General Instructions Sherrie John MD Jul 23, 2017 21:20
[2017-07-23 21:21] LABS: CREATINE KINASE 75 U/L (26-192)
[2017-07-23 21:22] LABS: POTASSIUM 2.9 MEQ/L (3.5-5.1)
[2017-07-23] MEDS ORDERED: POTASSIUM CHLORIDE 10 MEQ CONTROLLED RELEASE TAB PO ONE (21:30)
[2017-07-23] MEDS ORDERED: POTASSIUM CHLOR 20 MEQ PREMIX 100 ML IV ONE (21:30)
[2017-07-23 21:36] VITALS: BP 212/105; PULSE 81
[2017-07-23] MEDS ORDERED: hydrALAZINE HCL 20 MG/ML VIAL IV PUSH ONE (22:15)
[2017-07-23 22:20] VITALS: BP 224/106; PULSE 82; O2SAT 98
[2017-07-23] MEDS ORDERED: NALOXONE HCL 0.4 MG/ML AMP IV PRN (22:45)
[2017-07-23] MEDS ORDERED: SODIUM CHLORIDE 0.9% FLUSH 10 ML FLUSH IV FLUSH PRN (22:45)
[2017-07-23 23:26] LABS: MAGNESIUM 1.5 MG/DL (1.5-2.5)
[2017-07-23] MEDS: POTASSIUM CHLOR 20 MEQ PREMIX 100 ML IV SCH (23:59)
[2017-07-24] VITALS (9 sets, daily range): BP systolic 149–206; BP diastolic 93–109; PULSE 65–108; RESP 16–18; TEMP 96.8–98.7; O2SAT 92–100
[2017-07-24] MEDS: hydrALAZINE HCL 20 MG/ML VIAL IV PUSH PRN ×2 (00:05→01:12)
[2017-07-24] MEDS ORDERED: KETOROLAC TROMETHAMINE 30 MG/ML (IVP) VIAL IV PUSH ONE (03:00)
[2017-07-24] MEDS ORDERED: ACETAMIN 325 MG/BUTALBITAL 50 MG/CAFFEINE 40 MG TAB PO ONE (03:00)
[2017-07-24] MEDS ORDERED: PROCHLORPERAZINE INJ 10 MG/2 ML VIAL IV PUSH ONE (03:00)
[2017-07-24] MEDS ORDERED: diphenhydrAMINE HCL 50 MG/ML VIAL IV PUSH ONE (03:00)
[2017-07-24] MEDS: POTASSIUM CHLOR 20 MEQ PREMIX 100 ML IV SCH (03:17)
[2017-07-24 05:19] LABS: AUTOMATED NEUTROPHIL # 5.4 TH/MM3 (1.8-7.7); BASOPHIL # 0.1 TH/MM3 (0-0.2); EOSINOPHIL # 0.2 TH/MM3 (0-0.4); EOSINOPHIL % 2.5 % (0.0-4.0); HEMATOCRIT 35.6 % (35.0-46.0); LYMPH % 20.4 % (9.0-44.0); LYMPHOCYTE # 1.6 TH/MM3 (1.0-4.8); MEAN CORPUSCULAR HGB CONC 32.4 % (32.0-36.0); MONO % 5.8 % (0.0-8.0); NEUT % 70.3 % (16.0-70.0); PLATELET COUNT 223 TH/MM3 (150-450); RED BLOOD COUNT 5.01 MIL/MM3 (4.00-5.30); RED CELL DISTRIBUTION WIDTH 16.6 % (11.6-17.2); WHITE BLOOD COUNT 7.8 TH/MM3 (4.0-11.0)
[2017-07-24 05:34] LABS: POTASSIUM 3.4 MEQ/L (3.5-5.1)
[2017-07-24 05:36] LABS: MAGNESIUM 1.3 MG/DL (1.5-2.5)
[2017-07-24 05:42] LABS: HEMO FLAGS AUTO DIFF
[2017-07-24 05:53] LABS: CREATINE KINASE 58 U/L (26-192)
[2017-07-24 06:04] LABS: BICARBONATE 26.8 MEQ/L (21.0-32.0)
[2017-07-24 07:08] LABS: SCAN/DIFF AUTO DIFF CONFIRMED
[2017-07-24] MEDS ORDERED: GLUCAGON 1 MG/ML VIAL OTHER PRN (08:15)
[2017-07-24] MEDS ORDERED: POTASSIUM CHLORIDE 20 MEQ CONTROLLED RELEASE TAB PO ONE ×2 (08:15→17:30)
[2017-07-24] MEDS ORDERED: DEXTROSE 50% IN WATER 50 ML VIAL(D50) IV PRN (08:15)
--- NOTE | 2017-07-24 08:54 | HHI.HP ---
[facility] Service [facility] Primary Care Physician No Primary Care Physician Admission Diagnosis Chest Pain Diagnoses: (1) Migraine Diagnosis: Principal (2) Hypertensive urgency Diagnosis: Principal (3) Chest pain Diagnosis: Principal (4) Acute hypokalemia Diagnosis: Principal (5) Hypomagnesemia Diagnosis: Principal (6) Transaminitis Diagnosis: Principal Chief Complaint: migraine, elevated BP, chest pain Travel History International Travel<30 Days: No Contact w/Intl Traveler <30 Da: No Traveled to Known Affected Are: No History of Present Illness 31-year-old female with history of hypertension, PCOS, migraines, and depression presents with complaint of migraine, elevated blood pressure, and chest pain. The patient states that on Saturday, 2 days ago she was inside and she started to feel like her face and whole head were hot with pressure, and she felt like her blood pressure was increasing. She states a migraine suddenly started that afternoon indicating the pain was a crown around her head. She states it was a 9/10 at that time. She states it felt like a pressure. She states her migraine resolved with the medication she received in the ED last night but is again present currently as an anterior band of pressure rating it a 4-5/10. States migraine felt similar to prior migraines. She states she had significant nausea but denies any vomiting or abdominal pain. She denies any blurred vision or diplopia with her migraine. Denies any focal weakness but states she had a feeling of generalized weakness. She states she took a leftover Percocet Saturday night for the migraine which helped her sleep. She states when she awoke yesterday she had chest pain, pressure over her sternum which was constant throughout the day rating it a 7/10. She admits to associated shortness of breath. Denies any numbness or tingling. Denies any radiation of pain to the jaw/neck/back/arms. She has chronic bilateral lower extremity edema but states it is no worse than normal. She denies any exacerbating or alleviating factors. Has chronic sob with exertion due to obesity. Patient states she had a stomach bug last week with vomiting and diarrhea but this cleared up last Saturday or Saturday, 1 week ago. She had come to the ED at that time (07/15) and had hypokalemia and was treated and prescribed antibiotics. She denies any recent fevers or chills, cold, or cough symptoms, or rashes. Review of Systems Constitutional: DENIES: Fever, Chills Eyes: DENIES: Blurred vision, Diplopia Ears, nose, mouth, throat: DENIES: Throat pain, Ear Pain, Running Nose Respiratory: COMPLAINS OF: Shortness of breath, DENIES: Cough Cardiovascular: COMPLAINS OF: Chest pain, Lower Extremity Edema (chronic) Gastrointestinal: COMPLAINS OF: Nausea, DENIES: Abdominal pain, Diarrhea, Vomiting Genitourinary: DENIES: Dysuria Musculoskeletal: DENIES: Back pain, Neck pain Integumentary: DENIES: Rash Neurologic: COMPLAINS OF: Headache, DENIES: Localized weakness, Paresthesias Past Family Social History Past Medical History Hypertension PCOS Migraines Depression Last menstrual period 07/08/17 Past Surgical History None Reported Medications Reported Meds & Active Scripts Active Zofran Odt (Ondansetron Odt) 4 Mg Tab 4 Mg SL Q6HR PRN Flagyl (Metronidazole) 500 Mg Tab 500 Mg PO TID Hydralazine HCl 25 Mg Tablet 50 Mg PO TID Metoprolol Tartrate 50 Mg Tab 50 Mg PO BID Metformin (Metformin HCl) 500 Mg Tab 500 Mg PO BIDPC With meals Lisinopril 20 Mg Tab 20 Mg PO DAILY Allergies: Coded Allergies: No Known Allergies (Verified , 07/23/17) Family History Mother: History of diabetes; hypertension; patient states she had some sort of stroke in her 40s. Father: Diabetes, hypertension, [place] in his 40s. Maternal and paternal family history of diabetes and hypertension. No siblings. Social History No history of tobacco use. Denies alcohol use. Denies illicit drug use. Physical Exam Vital Signs Vital Signs Date Time Temp Pulse Resp B/P (MAP) Pulse Ox O2 Delivery O2 Flow Rate FiO2 07/24/17 03:34 108 18 149/93 (111) 92 07/24/17 03:10 97.4 100 18 155/96 (115) 93 07/24/17 01:42 88 18 171/109 (129) 96 07/24/17 01:00 98.7 79 18 191/100 (130) 97 07/24/17 00:25 07/24/17 00:01 78 206/102 (136) 07/23/17 22:20 82 224/106 (145) 98 Room Air 07/23/17 21:36 81 212/105 (140) 07/23/17 21:05 87 16 208/111 (143) 98 Room Air 07/23/17 20:37 78 227/110 (149) 97 Room Air 07/23/17 20:04 88 99 Room Air 07/23/17 19:49 98.7 84 16 244/121 (162) 99 Physical Exam GENERAL: This is a pleasant well-developed morbidly obese patient, in no apparent distress. SKIN: No rashes, ecchymoses or lesions. Warm and dry. HEAD: Atraumatic. Normocephalic. EYES: Pupils equal round and reactive. Extraocular motions intact. No scleral icterus. No injection or drainage. ENT: B/L TMs non-erythematous, intact, with good cone of light. Throat without erythema or exudate. Uvula midline. Airway patent. NECK: No lymphadenopathy. Supple, nontender, no meningeal signs. Full flexion, extension, and lateral ROM without pain or limitation. CHEST: Reproducible tenderness over the sternum. CARDIOVASCULAR: Tachycardic rate with regular rhythm without murmurs, gallops, or rubs. RESPIRATORY: Clear to auscultation. Breath sounds equal bilaterally. No wheezes , rales, or rhonchi. GASTROINTESTINAL: Abdomen soft, non-tender, nondistended. No guarding. MUSCULOSKELETAL: Pitting edema bilateral lower legs. NEUROLOGICAL: Awake and alert. Cranial nerves II through XII intact. Motor grossly within normal limits. Gross sensation decreased over the anterior distal right lower leg which is chronic. 5/5 strength in bilateral arms and legs. Normal speech. Laboratory Laboratory Tests Test 07/23/17 20:15 07/24/17 04:35 White Blood Count 9.9 7.8 Red Blood Count 5.28 5.01 Hemoglobin 12.5 11.5 Hematocrit 38.2 35.6 Mean Corpuscular Volume 72.3 71.0 Mean Corpuscular Hemoglobin 23.7 23.0 Mean Corpuscular Hemoglobin Concent 32.8 32.4 Red Cell Distribution Width 16.5 16.6 Platelet Count 229 223 Mean Platelet Volume 10.3 11.1 Neutrophils (%) (Auto) 64.1 70.3 Lymphocytes (%) (Auto) 21.3 20.4 Monocytes (%) (Auto) 8.0 5.8 Eosinophils (%) (Auto) 3.2 2.5 Basophils (%) (Auto) 3.4 1.0 Neutrophils # (Auto) 6.4 5.4 Lymphocytes # (Auto) 2.1 1.6 Monocytes # (Auto) 0.8 0.5 Eosinophils # (Auto) 0.3 0.2 Basophils # (Auto) 0.3 0.1 CBC Comment AUTO DIFF AUTO DIFF Differential Comment AUTO DIFF CONFIRMED AUTO DIFF CONFIRMED Platelet Estimate NORMAL Platelet Morphology Comment NORMAL Prothrombin Time 10.0 Prothromb Time International Ratio 0.9 Activated Partial Thromboplast Time 26.4 Blood Urea Nitrogen 14 12 Creatinine 0.98 0.72 Random Glucose 152 162 Total Protein 7.6 Albumin 3.4 Calcium Level 8.8 7.8 Magnesium Level 1.5 1.3 Alkaline Phosphatase 88 Aspartate Amino Transf (AST/SGOT) 51 Alanine Aminotransferase (ALT/SGPT) 62 Total Bilirubin 0.3 Sodium Level 134 137 Potassium Level 2.9 3.4 Chloride Level 97 102 Carbon Dioxide Level 29.6 26.8 Anion Gap 7 8 Estimat Glomerular Filtration Rate 66 94 Total Creatine Kinase 75 58 Troponin I LESS THAN 0.02 LESS THAN 0.02 Result Diagram: 07/24/1743407/24/17434 Imaging Last Impressions Chest X-Ray 07/23/172009 Signed Impressions: Service Date/Time: Sunday, July 23, 2017 20:14 - CONCLUSION: No acute cardiopulmonary abnormality is identified. MD Leia Danieli VTE Risk Assessment Caprini VTE Risk Assessment: Mod/High Risk (score >= 2) (2) Caprini Risk Assessment Model Point Value = 1 Point Value = 2 Point Value = 3 Point Value = 5 Age 41-60 Minor surgery BMI > 25 kg/m2 Swollen legs Varicose veins or History of unexplained or recurrent spontaneous Oral contraceptives or hormone replacement Sepsis (< 1 month) Serious lung disease, including pneumonia (< 1 month) Abnormal pulmonary function Acute myocardial infarction Congestive heart failure (< 1 month) History of inflammatory bowel disease Medical patient at bed rest Age 61-74 Arthroscopic surgery Major open surgery (> 45 min) Laparoscopic surgery (> 45 min) Malignancy Confined to bed (> 72 hours) Immobilizing plaster cast Central venous access Age >= 75 History of VTE Family history of VTE Factor V Leiden Prothrombin [id number] Lupus anticoagulant Anticardiolipin antibodies Elevated serum homocysteine Heparin-induced thrombocytopenia Other congenital or acquired thrombophilia Stroke (< 1 month) Elective arthroplasty Hip, pelvis, or leg fracture Acute spinal cord injury (< 1 month) Prophylaxis Regimen Total Risk Factor Score Risk Level Prophylaxis Regimen 0-1 Low Early ambulation 2 Moderate Order ONE of the following: *Sequential Compression Device (SCD) *Heparin 5000 units SQ BID 3-4 Higher Order ONE of the following medications: *Heparin 5000 units SQ TID *Enoxaparin/Lovenox 40 mg SQ daily (WT < 150 kg, CrCl > 30 mL/min) *Enoxaparin/Lovenox 30 mg SQ daily (WT < 150 kg, CrCl > 10-29 mL/min) *Enoxaparin/Lovenox 30 mg SQ BID (WT < 150 kg, CrCl > 30 mL/min) AND/OR *Sequential Compression Device (SCD) 5 or more Highest Order ONE of the following medications: *Heparin 5000 units SQ TID (Preferred with Epidurals) *Enoxaparin/Lovenox 40 mg SQ daily (WT < 150 kg, CrCl > 30 mL/min) *Enoxaparin/Lovenox 30 mg SQ daily (WT < 150 kg, CrCl > 10-29 mL/min) *Enoxaparin/Lovenox 30 mg SQ BID (WT < 150 kg, CrCl > 30 mL/min) AND *Sequential Compression Device (SCD) Assessment and Plan Assessment and Plan 31-year-old female with: Migraine: Started 2 days ago, was relieved with medications in the ED. She has received 2 doses each of Toradol, Compazine, and Benadryl since arrival. Patient still has a migraine currently but it is less intense and the patient does not appear in any discomfort on exam. Neurological exam is normal. Patient states this is similar to prior migraines. Could be attributed to HTN. -Continue Toradol prn as indicated for headache. Hypertensive urgency: BP of 244/121 on arrival. Has improved but remained elevated. She received 10 mg of IV hydralazine in the ED. -Continue home medications including po metoprolol, lisinopril, and hydralazine. -Clonidine prn SBP >160 and/or DBP >90. -Telemetry Chest pain: Patient developed pressure over her sternum which which was constant yesterday with associated shortness of breath. EKGs [address] personally interpreted with lateral ST changes, but these changes appear similar to EKG on 12/14/16. Chest x-ray personally interpreted with no acute disease. Cardiac enzymes 2 normal. Patient has reproducible tenderness over the sternum which she states is the same as the pain she was experiencing. Chest pain could also be attributed to significant hypertension. Lower extremity edema is chronic. -Last set of EKG and enzymes -Telemetry -Patient had myocardial perfusion scan on 12/15/16 showing mild hypokinesis of the septum but otherwise normal. She had an Echo on 12/14/16 indicating mild LVH , trace tricuspid valve regurgitation, PA peak pressure 37, and an EF of 55-60% . No evidence of failure. There is no indication to repeat myocardial perfusion scan at this time as one was recently performed and unlikely to show any acute change. Hypokalemia and hypomagnesemia: Likely attributed to recent gastroenteritis for which patient was evaluated in the ED on 07/15. -Patient received 60 mg IV KCl and 30 mEq by mouth KCl overnight. Serum potassium improved but still mildly decreased. Another 20 mg by mouth KCl ordered. -2 g IV magnesium sulfate ordered -Recheck electrolyte levels at 1300 hours. Mild transaminitis: AST and ALT 51 and 62 respectively stable from labs on . Could be related to recent GI illness. No abdominal pain on exam. Nothing acute to do. PCOS: Continue metformin Patient states she is still taking Flagyl for gastroenteritis, but symptoms cleared 1 week ago and patient should have completed course of antibiotics by now. Will not continue as unnecessary. DVT prophylaxis: TEDs/SCDs Discussed Condition With Dr. Alvarado, attending. Medical Decision Making Impression and Plan The exam, history, and the medical decision-making described in the above note were completed with the assistance of the mid-level provider. I reviewed and agree with the findings presented. I attest that I had a [id number] encounter with the patient on the same day, and personally performed and documented my assessment and findings in the medical record. Patient seen Discussed findings with patient and father at bedside; atypical CP with mildly elevated trop and with Uncontrolled HTN Medical Decision Making Impression and Plan Patient is The exam, history, and the medical decision-making described in the above note were completed with the assistance of the mid-level provider. I reviewed and agree with the findings presented. I attest that I had a face-to- face encounter with the patient on the same day, and personally performed and documented my assessment and findings in the medical record. Patient care plan discussed with patient and father bedside. Cardiac enzymes slightly elevated in this young patient with uncontrolled hypertension. We'll consult cardiology for further assistance as the patient will need follow-up further follow-up with blood pressure control and clarification of her management with equivocal/elevated troponins. Problem Qualifiers (1) Migraine: Qualified Codes: G43.009 - Migraine without aura, not intractable, without status migrainosus (2) Chest pain: Qualified Codes: R07.9 - Chest pain, unspecified Diana Bui Jul 24, 2017 08:54 Brooke Alvarado MD Jul 24, 2017 13:58
[2017-07-24] MEDS: hydrALAZINE HCL 50 MG TAB PO SCH ×4 (08:55→23:50)
[2017-07-24] MEDS: METOPROLOL TARTRATE 50 MG TAB PO SCH ×2 (08:55→21:38)
[2017-07-24] MEDS: MAGNESIUM SULFATE 1 GM PREMIX 100 ML IV SCH ×3 (08:56→09:53)
[2017-07-24] MEDS: SODIUM CHLORIDE 0.9% FLUSH 10 ML FLUSH IV FLUSH SCH ×2 (08:56→21:41)
[2017-07-24] MEDS ORDERED: LISINOPRIL 20 MG TAB PO SCH (09:00)
[2017-07-24] MEDS: metFORMIN HCL 500 MG TAB PO SCH ×2 (09:45→17:30)
[2017-07-24] MEDS ORDERED: KETOROLAC TROMETHAMINE 30 MG/ML (IVP) VIAL IVP PRN (10:00)
[2017-07-24] MEDS ORDERED: ACETAMINOPHEN 325 MG TAB PO PRN (10:00)
[2017-07-24] MEDS ORDERED: INSULIN ASPART SUPPLEMENTAL SCALE SQ SCH (11:00)
[2017-07-24] MEDS ORDERED: FUROSEMIDE 40 MG/4 ML VIAL IV PUSH ONE (11:30)
[2017-07-24] MEDS ORDERED: HYDR25TA5 PO (11:44)
[2017-07-24] MEDS: HYDROCHLOROTHIAZIDE 25 MG TAB PO SCH (11:52)
[2017-07-24] MEDS ORDERED: metroNIDAZOLE 500 MG TAB PO SCH (13:00)
[2017-07-24] MEDS: KETOROLAC TROMETHAMINE 30 MG/ML (IVP) VIAL IVP PRN ×2 (13:15→21:42)
[2017-07-24 14:02] LABS: POTASSIUM 3.2 MEQ/L (3.5-5.1)
[2017-07-24 14:03] LABS: MAGNESIUM 1.9 MG/DL (1.5-2.5)
[2017-07-24] MEDS: cloNIDine HCL 0.1 MG TAB PO PRN ×2 (14:47→23:50)
[2017-07-24] MEDS ORDERED: hydrALAZINE HCL 20 MG/ML VIAL IV PUSH PRN (15:00)
[2017-07-24] MEDS: amLODIPine BESYLATE 5 MG TAB PO SCH (17:30)
--- NOTE | 2017-07-24 19:28 | EKG ---
Date Performed: 07/24/2017 Time Performed: 09:59:01 PTAGE: 31 years EKG: Sinus rhythm LEFT VENTRICULAR HYPERTROPHY AND ST-T CHANGE ABNORMAL ECG PREVIOUS TRACING : 07/24/2017 04.24 Compared to prior tracing no significant change DOCTOR: Ye Santos Interpretating Date/Time 07/24/2017 19:27:29
--- NOTE | 2017-07-24 19:37 | EKG ---
Date Performed: 07/24/2017 Time Performed: 04:24:41 PTAGE: 31 years EKG: SINUS TACHYCARDIA LEFT VENTRICULAR HYPERTROPHY AND ST-T CHANGE ABNORMAL ECG PREVIOUS TRACING : 07/23/2017 20.02 Compared to prior tracing no significant change DOCTOR: Ye Santos Interpretating Date/Time 07/24/2017 19:36:11
--- NOTE | 2017-07-24 19:46 | EKG ---
Date Performed: 07/23/2017 Time Performed: 20:02:39 PTAGE: 31 years EKG: Sinus rhythm POSSIBLE LEFT ATRIAL ENLARGEMENT LEFT VENTRICULAR HYPERTROPHY AND ST-T CHANGE ABNORMAL ECG PREVIOUS TRACING : 12/14/2016 05.37 Compared to prior tracing no significant change DOCTOR: Ye Santos Interpretating Date/Time 07/24/2017 19:45:31
--- NOTE | 2017-07-24 21:05 | HHI.PR ---
Subjective Remarks DRAFT Pt not seen F/U CP, SOB and OCHOA Objective Vitals Vital Signs Date Time Temp Pulse Resp B/P (MAP) Pulse Ox O2 Delivery O2 Flow Rate FiO2 07/24/17 17:15 96.8 96 18 159/95 (116) 100 07/24/17 08:00 107 07/24/17 08:00 97.4 105 18 170/103 (125) 96 07/24/17 03:34 108 18 149/93 (111) 92 07/24/17 03:10 97.4 100 18 155/96 (115) 93 07/24/17 01:42 88 18 171/109 (129) 96 07/24/17 01:00 98.7 79 18 191/100 (130) 97 07/24/17 00:25 07/24/17 00:01 78 206/102 (136) 07/23/17 22:20 82 224/106 (145) 98 Room Air 07/23/17 21:36 81 212/105 (140) 07/23/17 21:05 87 16 208/111 (143) 98 Room Air I/O 07/23/17 07/23/17 07/23/17 07/24/17 07/24/17 07/24/17 07:00 15:00 23:00 07:00 15:00 23:00 Intake Total 100 ml 100 ml 600 ml Output Total 400 ml Balance -400 ml 100 ml 100 ml 600 ml Intake Oral 600 ml IV Total 100 ml 100 ml Output Urine Total 400 ml # Voids 1 1 Result Diagram: 07/24/17 0435 07/24/17 1345 A/P Problem List: (1) Migraine ICD Code: G43.909 - Migraine, unspecified, not intractable, without status migrainosus Status: Acute (2) Hypertensive urgency ICD Code: I16.0 - Hypertensive urgency (3) Chest pain ICD Code: R07.9 - Chest pain, unspecified Status: Acute (4) Acute hypokalemia ICD Code: E87.6 - Hypokalemia Status: Acute (5) Hypomagnesemia ICD Code: E83.42 - Hypomagnesemia (6) Transaminitis ICD Code: R74.0 - Nonspecific elevation of levels of transaminase and lactic acid dehydrogenase [LDH] Assessment and Plan 31-year-old female with: Migraine: Started 2 days ago, was relieved with medications in the ED. She has received 2 doses each of Toradol, Compazine, and Benadryl since arrival. Patient still has a migraine currently but it is less intense and the patient does not appear in any discomfort on exam. Neurological exam is normal. Patient states this is similar to prior migraines. Could be attributed to HTN. -Continue Toradol prn as indicated for headache. Hypertensive urgency: BP of 244/121 on arrival. Has improved but remained elevated. She received 10 mg of IV hydralazine in the ED. -Continue home medications including po metoprolol, lisinopril, and hydralazine. Also on norvasc and HCTZ -Clonidine prn SBP >160 and/or DBP >90. -Telemetry Chest pain: Patient developed pressure over her sternum which which was constant yesterday with associated shortness of breath. EKGs [address] with lateral [address] changes, but these changes appear similar to EKG on 12/14/16. Chest x-ray personally interpreted with no acute disease. Last trop elevated .08. Patient has reproducible tenderness over the sternum which she states is the same as the pain she was experiencing. Chest pain could also be attributed to significant hypertension. Lower extremity edema is chronic. -Cards consulted -Telemetry -Patient had myocardial perfusion scan on 12/15/16 showing mild hypokinesis of the septum but otherwise normal. She had an Echo on 12/14/16 indicating mild LVH , trace tricuspid valve regurgitation, PA peak pressure 37, and an EF of 55-60% . No evidence of failure. There is no indication to repeat myocardial perfusion scan at this time as one was recently performed and unlikely to show any acute change. Hypokalemia and hypomagnesemia: Likely attributed to recent gastroenteritis for which patient was evaluated in the ED on 07/15. -Patient received 60 mg IV KCl and 30 mEq by mouth KCl overnight. Serum potassium improved but still mildly decreased. Another 20 mg by mouth KCl ordered. -2 g IV magnesium sulfate ordered -Recheck electrolyte levels at 1300 hours. Mild transaminitis: AST and ALT 51 and 62 respectively stable from labs on . Could be related to recent GI illness. No abdominal pain on exam. Nothing acute to do. PCOS: Continue metformin Patient states she is still taking Flagyl for gastroenteritis, but symptoms cleared 1 week ago and patient should have completed course of antibiotics by now. DVT prophylaxis: TEDs/SCDs Problem Qualifiers (1) Migraine: Qualified Codes: G43.009 - Migraine without aura, not intractable, without status migrainosus (2) Chest pain: Qualified Codes: R07.9 - Chest pain, unspecified Jose Zaidi MD Jul 24, 2017 21:04
[2017-07-24] MEDS: LISINOPRIL 20 MG TAB PO SCH (21:39)
[2017-07-25] VITALS: BP 171/95; PULSE 77; RESP 18; TEMP 98.2; O2SAT 96
[2017-07-25 04:00] VITALS: BP 156/91; PULSE 79; RESP 18; TEMP 97.5; O2SAT 97
[2017-07-25] MEDS: hydrALAZINE HCL 50 MG TAB PO SCH ×2 (05:47→11:46)
--- NOTE | 2017-07-25 06:04 | MB ---
cc: BASIL REAGAN MD DATE OF CONSULTATION 07/24/2017 REASON FOR CONSULTATION Elevated troponin and chest pain HISTORY OF PRESENT ILLNESS Ms. Calvin is a 31-year-old female who does have a history of hypertension, polycystic ovary disease, diabetes and obesity. She presented with complaints of migraine, elevated blood pressure and chest pain. She notes that recently she had stomach bug and had nausea, vomiting and diarrhea. She notes to me that her chest pain correlated with her hypertension. She has had readings at home over 200. She notes that she has not had any chest pain on exertion/with activities. OUTPATIENT MEDICATIONS 1. Hydralazine 50 mg t.i.d. 2. Metoprolol 50 mg b.i.d. 3. Metformin 500 mg b.i.d. 4. Lisinopril 20 mg a day. ALLERGIES No known drug allergies. FAMILY HISTORY Positive for diabetes. REVIEW OF SYSTEMS Except as mentioned in the HPI, all 12 systems are negative. PHYSICAL EXAMINATION CURRENT VITAL SIGNS: 97.4, 105, 18, 170/103. GENERAL: She is a morbidly obese female who is in no apparent distress. NECK: Her neck is free from JVD. LUNGS: The lungs are bilaterally clear to auscultation. CARDIOVASCULAR EXAMINATION: She has a normal S1 and S2, did not appreciate any murmurs, rubs or gallops. ABDOMEN: Soft. EXTREMITIES: Free from edema. LAB VALUES Significant for a potassium of 2.9 on arrival. Today it is 3.2. Her serial cardiac enzymes included troponin of 0.02/0.02/0.08. Stress testing from December 15, 2016, showed normal perfusion with an EF of 48%. IMPRESSION Elevated troponin - This is almost certainly due to her uncontrolled hypertension. She did have normal stress test earlier in the year. I do not feel any further workup is indicated at this point as this elevation would be secondary to her blood pressure. Uncontrolled hypertension - I did have an extensive conservation with her about lifestyle modifications to assist with her blood pressure management. As well I would increase her hydralazine to q.6, increase her lisinopril to b.i.d., and add Norvasc 5 mg a day. Electrolyte imbalance - This will be managed by the primary team. Sincerely, Basil Reagan M.D. BAB/SSB /4:14 PM /5:52 AM
[2017-07-25 06:11] LABS: POTASSIUM 3.6 MEQ/L (3.5-5.1)
[2017-07-25 06:17] LABS: BICARBONATE 29.1 MEQ/L (21.0-32.0)
[2017-07-25 08:00] VITALS: BP 131/65; PULSE 92; RESP 16; TEMP 96; O2SAT 99
[2017-07-25] MEDS: HYDROCHLOROTHIAZIDE 25 MG TAB PO SCH (08:55)
[2017-07-25] MEDS: metFORMIN HCL 500 MG TAB PO SCH (08:56)
[2017-07-25] MEDS: METOPROLOL TARTRATE 50 MG TAB PO SCH (08:56)
[2017-07-25] MEDS: amLODIPine BESYLATE 5 MG TAB PO SCH (08:56)
[2017-07-25] MEDS: LISINOPRIL 20 MG TAB PO SCH (08:56)
[2017-07-25] MEDS: SODIUM CHLORIDE 0.9% FLUSH 10 ML FLUSH IV FLUSH SCH (08:57)
[2017-07-25] MEDS ORDERED: INFLUENZA VIRUS VACCINE (QUADRIVALENT) 0.5 ML SYR IM ONE (10:00)
[2017-07-25 12:00] VITALS: BP 164/97; PULSE 78; RESP 18; TEMP 97.5; O2SAT 99
[2017-07-25] MEDS ORDERED: DEXTROSE 50% IN WATER 50 ML VIAL(D50) IV PRN (12:30)
[2017-07-25] MEDS ORDERED: GLUCAGON 1 MG/ML VIAL OTHER PRN (12:30)
[2017-07-25] MEDS ORDERED: LISI-515 PO (12:41)
[2017-07-25] MEDS ORDERED: HYDR-3800 PO (12:41)
[2017-07-25] MEDS ORDERED: AMLO5 PO (12:41)
--- NOTE | 2017-07-25 12:42 | HHI.DCPOC ---
Discharge Care Plan Diagnosis: (1) Chest pain (2) Hypertension Your Health Problems Are: Difficulty with ADL Exercise Tolerance Goals to Promote Your Health * To prevent worsening of your condition and complications * To maintain your health at the optimal level Directions to Meet Your Goals Take your medications as prescribed Follow your dietary instruction Follow activity as directed Keep your appointments as scheduled Take your immunizations and boosters as scheduled If your symptoms worsen call your PCP, if no PCP go to Urgent Care Center or Emergency Room Smoking is Dangerous to Your Health. Avoid second hand smoke Call the 24-hour hour crisis hotline for domestic abuse at Jose Zaidi MD Jul 25, 2017 12:42
--- NOTE | 2017-07-25 12:49 | HHI.PR ---
Subjective Remarks Follow-up hypertension, chest pain and elevated troponin. BP much improved denies symptoms no headache, chest pain and shortness of breath. Advised regarding BP management to take hydralazine every 6 hours starting at 6 in the morning, hydrochlorothiazide and Norvasc daily at 8:00 in the morning, Lopressor and lisinopril twice a day starting at 9 in the morning. Patient to check BP before taking medications and record readings to show to PCP Objective Vitals Vital Signs Date Time Temp Pulse Resp B/P (MAP) Pulse Ox O2 Delivery O2 Flow Rate FiO2 07/25/17 12:00 97.5 78 18 164/97 (119) 99 07/25/17 08:00 96.0 92 16 131/65 (87) 99 07/25/17 04:00 97.5 79 18 156/91 (112) 97 07/25/17 00:00 98.2 77 18 171/95 (120) 96 07/24/17 23:19 94 07/24/17 20:00 98.0 98 16 155/98 (117) 98 07/24/17 17:15 96.8 96 18 159/95 (116) 100 I/O 07/24/17 07/24/17 07/24/17 07/25/17 07/25/17 07/25/17 07:00 15:00 23:00 07:00 15:00 23:00 Intake Total 100 ml 100 ml 840 ml 240 ml Balance 100 ml 100 ml 840 ml 240 ml Intake Oral 840 ml 240 ml IV Total 100 ml 100 ml # Voids 1 1 3 Result Diagram: 07/24/17 0435 07/25/17 0540 Imaging Last Impressions Chest X-Ray 07/23/172009 Signed Impressions: Service Date/Time: Sunday, July 23, 2017 20:14 - CONCLUSION: No acute cardiopulmonary abnormality is identified. Marty Hayes MD Objective Remarks Well-developed, obese in no distress No JVD no bruit Clear to auscultation equal in expansion Regular rate and rhythm Abdomen soft obese Extremities no edema and cyanosis Alert and oriented nonfocal Procedures Non- A/P Problem List: (1) Migraine ICD Code: G43.909 - Migraine, unspecified, not intractable, without status migrainosus Status: Acute (2) Hypertensive urgency ICD Code: I16.0 - Hypertensive urgency (3) Chest pain ICD Code: R07.9 - Chest pain, unspecified Status: Acute (4) Acute hypokalemia ICD Code: E87.6 - Hypokalemia Status: Acute (5) Hypomagnesemia ICD Code: E83.42 - Hypomagnesemia (6) Transaminitis ICD Code: R74.0 - Nonspecific elevation of levels of transaminase and lactic acid dehydrogenase [LDH] Assessment and Plan 31-year-old female with: Migraine: Worse secondary to uncontrolled hypertension. Resolved -Continue Toradol prn as indicated for headache. Hypertensive urgency: BP of 244/121 on arrival. Resolved. Advised regarding BP management to take hydralazine every 6 hours starting at 6 in the morning, hydrochlorothiazide and Norvasc daily at 8:00 in the morning, Lopressor and lisinopril twice a day starting at 9 in the morning. Patient to check BP before taking medications and record readings to show to PCP -Telemetry Chest pain with mild troponin elevation likely secondary to uncontrolled hypertension. Negative stress test this year. Status post cardiology evaluationme as one was recently performed and unlikely to show any acute change. Hypokalemia and hypomagnesemia: Likely attributed to recent gastroenteritis for which patient was evaluated in the ED on 07/15. Improved Mild transaminitis: AST and ALT 51 and 62 respectively stable from labs on . Could be related to recent GI illness. No abdominal pain on exam. Outpatient follow-up PCOS: Continue metformin Hyperglycemia. Monitor fingersticks with sliding scale coverage. Outpatient follow-up Patient states she is still taking Flagyl for gastroenteritis, but symptoms cleared 1 week ago and patient should have completed course of antibiotics by now. DVT prophylaxis: TEDs/SCDs Discharge Planning Discharge patient to home Condition on discharge: Improved Regular Diet as tolerated Ad Wanda activity no driving Rx written: Hydrochlorothiazide, lisinopril, Norvasc and hydralazine Follow-up with primary care physician in one week Problem Qualifiers (1) Migraine: Qualified Codes: G43.009 - Migraine without aura, not intractable, without status migrainosus (2) Chest pain: Qualified Codes: R07.9 - Chest pain, unspecified Jose Zaidi MD Jul 25, 2017 12:49
[2017-07-25] MEDS ORDERED: POTASSIUM CHLORIDE 20 MEQ CONTROLLED RELEASE TAB PO ONE (13:00)
[2017-07-25] MEDS ORDERED: INSULIN ASPART SUPPLEMENTAL SCALE SQ SCH (16:00)
[2017-08-02] MEDS ORDERED: BUSP10TA PO (11:23)
[2017-08-02] MEDS ORDERED: AMLO5 PO (11:36)
[2017-08-02] MEDS ORDERED: METO50TA PO (11:36)
[2017-08-02] MEDS ORDERED: LISI30TA4 PO ×2 (11:36→11:41)
[2017-08-02] MEDS ORDERED: HYDR50TA3 PO (11:36)
[2017-08-02] MEDS ORDERED: HYDR-3800 PO (11:36)
== END 2017-07-25 13:38 | disposition home or self-care (01) ==
LOC: PHED 19:38 → PHEDA 22:44 → PH3A 07-24 00:28
PROVIDERS: ADMIT Internal Medicine; ATTEND Internal Medicine
DX: G43.009 Migraine without aura, not intractable, without status migrainosus (principal); I16.0 Hypertensive urgency; R07.9 Chest pain, unspecified; R94.31 Abnormal electrocardiogram [ECG] [EKG]; E87.6 Hypokalemia; E83.42 Hypomagnesemia; R74.0 Nonspecific elevation of levels of transaminase and lactic acid dehydrogenase [LDH]
CPT/HCPCS: 71010; 80048; 80053; 82550; 82948; 83735; 84132; 84484; 84703; 85025; 85610; 85730; 93005; 96365; 96366; 96375; 96376; 99285; G0378; J0360; J0780; J1200; J1885; J1940; J3475; J3480

== ENCOUNTER 2017-12-07 02:44 | Inpatient (IN) | payer SELFPAY ==
[~2017-12-07] VITALS: Ht 152.4 cm; Wt 122.6 kg
[2017-12-07] VITALS (16 sets, daily range): BP systolic 147–218; BP diastolic 82–117; PULSE 81–131; RESP 16–25; TEMP 97.9–98.3; O2SAT 95–100
[~2017-12-07 02:44] MED LIST changes: +AMLO5 PO; +BUSP10TA PO; -CIPR500T2 PO; -HYDR-3799 PO; +HYDR-3800 PO; +HYDR50TA3 PO; -LISI-515 PO; +LISI30TA4 PO; -METR-1 PO
[2017-12-07] MEDS ORDERED: SODIUM CHLOR 0.9% 1000 ML INJ 1,000 ML IV SCH ×3 (03:03→04:38)
--- NOTE | 2017-12-07 03:09 | PD ---
HPI Chief Complaint: GI Complaint Time Seen by Provider: 02:59 Travel History International Travel<30 days: No Contact w/Intl Traveler<30days: No Traveled to known affect area: No History of Present Illness HPI The patient is a 32-year-old female that complains of nausea, vomiting and diarrhea along with abdominal pain in the right upper quadrant and midline epigastrium for one day. She states she has had this pain before but not nearly as bad. She states that dairy products cause her problems and she had brownies and ice cream tonight. She has never been operated on and still has her appendix and gallbladder. She denies any fever. She denies vomiting any blood. Her pain is sharp and an 8/10. She states she takes the metformin because of menorrhagia and not for diabetes. She states she has not been diagnosed as having diabetes. PFSH Past Medical History Asthma: No Autoimmune Disease: No Anxiety: Yes Depression: Yes Heart Rhythm Problems: No Cancer: No Cardiovascular Problems: Yes (HTN) High Cholesterol: No Chest Pain: No Congestive Heart Failure: No COPD: No Cerebrovascular Accident: No Diabetes: No Diminished Hearing: No Endocrine: No Gastrointestinal Disorders: Yes Genitourinary: No Headaches: Yes Hypertension: Yes (SINCE CHILDHOOD) Immune Disorder: No Kidney Stones: No Musculoskeletal: No Neurologic: Yes Psychiatric: Yes Reproductive: Yes (POLYCYSTIC OVARIAN SYNDROME) Respiratory: No Immunizations Current: Yes Migraines: Yes (FROM CHILDHOOD) Renal Failure: No Seizures: No Sleep Apnea: No Thyroid Disease: No Tetanus Vaccination: Unknown Influenza Vaccination: Yes ?: Not LMP: 12/04/17 : 0 Ovarian Cysts: Yes Past Surgical History Surgical History: No Previous Surgery Social History Alcohol Use: No Tobacco Use: No Substance Use: No Allergies-Medications (Allergen,Severity, Reaction): Coded Allergies: No Known Allergies (Verified Adverse Reaction, Unknown, 12/07/17) Reported Meds & Prescriptions Reported Meds & Active Scripts Active Lisinopril 30 Mg Tab 30 Mg PO BID Norvasc (Amlodipine Besylate) 5 Mg Tab 5 Mg PO DAILY Hydralazine HCl 50 Mg Tablet 50 Mg PO Q6HR Hydrochlorothiazide 50 Mg Tab 50 Mg PO DAILY Metoprolol Tartrate 50 Mg Tab 50 Mg PO BID Buspirone (Buspirone HCl) 10 Mg Tab 10 Mg PO TID PRN Reported Metformin (Metformin HCl) 500 Mg Tab 500 Mg PO BIDPC With meals Review of Systems Except as stated in HPI: all other systems reviewed are Neg Physical Exam Narrative GENERAL: The patient is alert, oriented 3 in moderate apparent distress. She is obese. Her vital signs show pulse rate of 125, blood pressure 212/117 but otherwise normal. SKIN: Focused skin assessment warm/dry. HEAD: Atraumatic. Normocephalic. EYES: Pupils equal and round. No scleral icterus. No injection or drainage. ENT: No nasal bleeding or discharge. Mucous membranes pink and moist. NECK: Trachea midline. No JVD. CARDIOVASCULAR: Regular rate and rhythm. No murmur appreciated. RESPIRATORY: No accessory muscle use. Clear to auscultation. Breath sounds equal bilaterally. GASTROINTESTINAL: Abdomen soft, with tenderness to direct palpation in the midline epigastrium as well as right upper quadrant, nondistended. Hepatic and splenic margins not palpable. Sparrow's sign is positive. MUSCULOSKELETAL: No obvious deformities. No clubbing. No cyanosis. No edema. NEUROLOGICAL: Awake and alert. No obvious cranial nerve deficits. Motor grossly within normal limits. Normal speech. PSYCHIATRIC: Appropriate mood and affect; insight and judgment normal. Data Data Last Documented VS Vital Signs Date Time Temp Pulse Resp B/P (MAP) Pulse Ox O2 Delivery O2 Flow Rate FiO2 12/07/17 04:09 108 16 200/94 (129) 96 Room Air 12/07/17 02:47 98.3 Orders Orders Complete Blood Count With Diff (12/07/17 03:03) Comprehensive Metabolic Panel (12/07/17 03:03) Lipase (12/07/17 03:03) Urinalysis - C+S If Indicated (12/07/17 03:03) Ct Abd/Pel W Iv Contrast(Rout) (12/07/17 03:03) Iv Access Insert/Monitor (12/07/17 03:03) Ecg Monitoring (12/07/17 03:03) Oximetry (12/07/17 03:03) Hydromorphone Pf Inj (Dilaudid Pf Inj) (12/07/17 03:15) Ondansetron Inj (Zofran Inj) (12/07/17 03:15) Pantoprazole Inj (Protonix Inj) (12/07/17 03:15) Sodium Chlor 0.9% 1000 Ml Inj (Ns 1000 M (12/07/17 03:03) Sodium Chloride 0.9% Flush (Ns Flush) (12/07/17 03:15) Famotidine Inj (Pepcid Inj) (12/07/17 03:15) Iohexol 350 Inj (Omnipaque 350 Inj) (12/07/17 03:40) Ondansetron Inj (Zofran Inj) (12/07/17 04:00) Sodium Chlor 0.9% 1000 Ml Inj (Ns 1000 M (12/07/17 04:00) Hydromorphone Pf Inj (Dilaudid Pf Inj) (12/07/17 04:00) Potassium Chloride (Kcl) (12/07/17 04:15) Hydromorphone Pf Inj (Dilaudid Pf Inj) (12/07/17 04:30) Bedside Glucose JACKIE.CSUGAR (12/07/17 04:38) Blood Glucose Goal (Criteria) (12/07/17 04:38) Hypoglycemia 70 Mg/Dl Or < (12/07/17 04:38) Notify Dr: Other (12/07/17 04:38) Dextrose 50% In Fe (Vial) Inj (D50w (Vi (12/07/17 04:45) Glucagon Inj (Glucagon Inj) (12/07/17 04:45) Low Novolog Scale (12/07/17 08:00) Place In Observation (12/07/17 ) Vital Signs (Adult) Q4H (12/07/17 04:38) Activity Oob Ad Wanda (12/07/17 04:38) Intake + Output JACKIE.QSHIFT (12/07/17 04:38) Diet 1800 Ada Cons Carb (12/07/17 Breakfast) Sodium Chlor 0.9% 1000 Ml Inj (Ns 1000 M (12/07/17 04:38) Sodium Chloride 0.9% Flush (Ns Flush) (12/07/17 04:45) Sodium Chloride 0.9% Flush (Ns Flush) (12/07/17 09:00) Ondansetron Inj (Zofran Inj) (12/07/17 04:45) Comprehensive Metabolic Panel (12/08/17 06:00) Complete Blood Count With Diff (12/08/17 06:00) Scd Bilateral/Knee High JACKIE.BID (12/07/17 04:38) Costa Bilateral/Knee High JACKIE.QSHIFT (12/07/17 04:41) Acetaminophen (Tylenol) (12/07/17 04:45) Acetamin-Hydrocod 325-5 Mg ([place] 5-325 (12/07/17 04:45) Morphine Inj (Morphine Inj) (12/07/17 04:45) Docusate Sodium-Senna (Laura-Colace) (12/07/17 09:00) Magnesium Hydroxide Liq (Milk Of Magnesi (12/07/17 04:45) Sennosides (Senokot) (12/07/17 04:45) Bisacodyl Supp (Dulcolax Supp) (12/07/17 04:45) Lactulose Liq (Lactulose Liq) (12/07/17 04:45) Labs Laboratory Tests Test 12/07/17 03:00 White Blood Count 11.1 TH/MM3 Red Blood Count 5.41 MIL/MM3 Hemoglobin 12.9 GM/DL Hematocrit 40.3 % Mean Corpuscular Volume 74.5 FL Mean Corpuscular Hemoglobin 23.9 PG Mean Corpuscular Hemoglobin Concent 32.1 % Red Cell Distribution Width 15.1 % Platelet Count 262 TH/MM3 Mean Platelet Volume 10.9 FL Neutrophils (%) (Auto) 85.3 % Lymphocytes (%) (Auto) 8.1 % Monocytes (%) (Auto) 3.8 % Eosinophils (%) (Auto) 1.8 % Basophils (%) (Auto) 1.0 % Neutrophils # (Auto) 9.5 TH/MM3 Lymphocytes # (Auto) 0.9 TH/MM3 Monocytes # (Auto) 0.4 TH/MM3 Eosinophils # (Auto) 0.2 TH/MM3 Basophils # (Auto) 0.1 TH/MM3 CBC Comment AUTO DIFF Differential Comment AUTO DIFF CONFIRMED Platelet Estimate NORMAL Platelet Morphology Comment NORMAL Blood Urea Nitrogen 15 MG/DL Creatinine 0.91 MG/DL Random Glucose 235 MG/DL Total Protein 7.8 GM/DL Albumin 3.3 GM/DL Calcium Level 8.4 MG/DL Alkaline Phosphatase 88 U/L Aspartate Amino Transf (AST/SGOT) 76 U/L Alanine Aminotransferase (ALT/SGPT) 82 U/L Total Bilirubin 0.5 MG/DL Sodium Level 135 MEQ/L Potassium Level 3.1 MEQ/L Chloride Level 98 MEQ/L Carbon Dioxide Level 28.8 MEQ/L Anion Gap 8 MEQ/L Estimat Glomerular Filtration Rate 71 ML/MIN Lipase 123 U/L MDM Medical Decision Making Medical Screen Exam Complete: Yes Emergency Medical Condition: Yes Medical Record Reviewed: Yes Interpretation(s) The CBC shows a white count 11,100 with 85% neutrophils. The complete metabolic profile shows a glucose of 235, albumin 3.3, calcium 8.4 with GOT 76 MG PT of 82 and sodium 135 and potassium 3.1 but is otherwise normal. The lipase is normal. Differential Diagnosis Cholelithiasis with colic, acute cholecystitis, gastritis, gastroenteritis, pancreatitis, electrolyte disorder, dehydration, bacterial enteritis, diabetes mellitus Narrative Course The patient has intractable abdominal pain. We have given 3 doses of Dilaudid for a total of 2 mg and she still has significant pain. Diagnosis Primary Impression: Intractable abdominal pain Additional Impression: Diabetes mellitus, new onset Admitting Information Admitting Physician Requests: Observation Christos Gipson MD Dec 07, 2017 03:09
[2017-12-07] MEDS ORDERED: HYDROmorphone HCL PF 2 MG/ML VIAL IVS ONE (03:15)
[2017-12-07] MEDS ORDERED: FAMOTIDINE 20 MG/2 ML VIAL IV PUSH ONE (03:15)
[2017-12-07] MEDS ORDERED: PANTOPRAZOLE SODIUM 40 MG VIAL IVP ONE (03:15)
[2017-12-07] MEDS ORDERED: SODIUM CHLORIDE 0.9% FLUSH 10 ML FLUSH IV FLUSH PRN ×2 (03:15→04:45)
[2017-12-07] MEDS ORDERED: ONDANSETRON HCL 4 MG/2 ML VIAL IVP ONE (03:15)
[2017-12-07 03:29] LABS: AUTOMATED NEUTROPHIL # 9.5 TH/MM3 (1.8-7.7); BASOPHIL # 0.1 TH/MM3 (0-0.2); EOSINOPHIL # 0.2 TH/MM3 (0-0.4); EOSINOPHIL % 1.8 % (0.0-4.0); HEMATOCRIT 40.3 % (35.0-46.0); HEMOGLOBIN 12.9 GM/DL (11.6-15.3); LYMPH % 8.1 % (9.0-44.0); LYMPHOCYTE # 0.9 TH/MM3 (1.0-4.8); MEAN CELL VOLUME 74.5 FL (80.0-100.0); MEAN CORPUSCULAR HEMOGLOBIN 23.9 PG (27.0-34.0); MEAN CORPUSCULAR HGB CONC 32.1 % (32.0-36.0); MEAN PLATELET VOLUME 10.9 FL (7.0-11.0); MONO % 3.8 % (0.0-8.0); MONOCYTE # 0.4 TH/MM3 (0-0.9); NEUT % 85.3 % (16.0-70.0); PLATELET COUNT 262 TH/MM3 (150-450); RED BLOOD COUNT 5.41 MIL/MM3 (4.00-5.30); RED CELL DISTRIBUTION WIDTH 15.1 % (11.6-17.2); WHITE BLOOD COUNT 11.1 TH/MM3 (4.0-11.0)
[2017-12-07 03:37] LABS: CHLORIDE 98 MEQ/L (98-107); SODIUM (NA) 135 MEQ/L (136-145)
[2017-12-07 03:40] LABS: CALCIUM 8.4 MG/DL (8.5-10.1)
[2017-12-07] MEDS ORDERED: IOHEXOL 350 MG/ML 10 ML VIAL (for RAD DIAG) IVCONTRAST ONE (03:40)
[2017-12-07 03:41] LABS: ALBUMIN 3.3 GM/DL (3.4-5.0); BICARBONATE 28.8 MEQ/L (21.0-32.0); BLOOD UREA NITROGEN 15 MG/DL (7-18); GLUCOSE,RANDOM 235 MG/DL (74-106); LIPASE 123 U/L (73-393)
[2017-12-07 03:43] LABS: ALT (GPT) 82 U/L (10-53); AST (GOT) 76 U/L (15-37)
[2017-12-07 03:44] LABS: CREATININE 0.91 MG/DL (0.50-1.00); GLOMERULAR FILTRATION RATE 71 ML/MIN (>89)
[2017-12-07 03:45] LABS: TOTAL BILIRUBIN ADULT 0.5 MG/DL (0.2-1.0); TOTAL PROTEIN 7.8 GM/DL (6.4-8.2)
[2017-12-07 03:46] LABS: ALKALINE PHOSPHATASE 88 U/L (45-117)
[2017-12-07] MEDS ORDERED: HYDROmorphone HCL PF 2 MG/ML VIAL IV PUSH ONE ×2 (04:00→04:30)
[2017-12-07] MEDS ORDERED: ONDANSETRON HCL 4 MG/2 ML VIAL IV ONE (04:00)
--- NOTE | 2017-12-07 04:07 | RADRPT ---
EXAM DATE/TIME: 12/07/2017 03:34 [facility] COMPARISON: CT ABDOMEN & PELVIS W CONTRAST, July 16, 2017, 0:10. INDICATIONS : Nausea and vomiting for 1 day IV CONTRAST: 96 cc Omnipaque 350 (iohexol) IV ORAL CONTRAST: No oral contrast ingested. RADIATION DOSE: 22.31 CTDIvol (mGy) ; Patient body habitus MEDICAL HISTORY : Hypertension. polycystic ovaries SURGICAL HISTORY : None. ENCOUNTER: Initial ACUITY: 1 day PAIN SCALE: 5/10 LOCATION: abdomen TECHNIQUE: Volumetric scanning of the abdomen and pelvis was performed. Using automated exposure control and ad justment of the mA and/or kV according to patient size, radiation dose was kept as low as reasonably achievable to obtain optimal diagnostic quality images. DICOM format image data is available electro nically for review and comparison. FINDINGS: LOWER LUNGS: The visualized lower lungs are clear. LIVER: Diffuse hypodensity of the liver indicating hepatic steatosis is again seen. No focal mass identified . Gallbladder is unremarkable. SPLEEN: Enlarged measuring 14.2 cm in craniocaudal dimension, unchanged from prior study. PANCREAS: Within normal limits. KIDNEYS: Normal in size and shape. There is no mass, stone or hydronephrosis. ADRENAL GLANDS: Within normal limits. VASCULAR: There is no aortic aneurysm. BOWEL/MESENTERY: No evidence of bowel dilatation. No free air or free fluid. Appendix within normal limits. ABDOMINAL WALL: Within normal limits. RETROPERITONEUM: There is no lymphadenopathy. BLADDER: No wall thickening or mass. REPRODUCTIVE: Within normal limits. INGUINAL: There is no lymphadenopathy or hernia. MUSCULOSKELETAL: Degenerative findings at L5-S1. CONCLUSION: 1. Chronic hepatic steatosis. 2. Chronic mild splenomegaly. 3. No acute findings in the abdomen and pelvis. Johnson Boggs MD on December 07, 2017 at 3:55 Board Certified Radiologist. This report was verified electronically.
[2017-12-07] MEDS ORDERED: POTASSIUM CHLORIDE 20 MEQ CONTROLLED RELEASE TAB PO ONE (04:15)
[2017-12-07] MEDS ORDERED: ACETAMINOPHEN/HYDROcodone 325 MG/5 MG TAB PO PRN (04:45)
[2017-12-07] MEDS ORDERED: DEXTROSE 50% IN WATER 50 ML VIAL(D50) IV PUSH PRN (04:45)
[2017-12-07] MEDS ORDERED: GLUCAGON 1 MG/ML VIAL OTHER PRN (04:45)
[2017-12-07] MEDS ORDERED: busPIRone HCL 10 MG TAB PO PRN (04:45)
[2017-12-07] MEDS ORDERED: SENNOSIDES 8.6 MG TAB PO PRN (04:45)
[2017-12-07] MEDS ORDERED: MAGNESIUM HYDROXIDE SUSP 30 ML CUP PO PRN (04:45)
[2017-12-07] MEDS ORDERED: BISACODYL 10 MG SUPP RECTAL PRN (04:45)
[2017-12-07] MEDS ORDERED: MORPHINE SULFATE 2 MG/ML INJ IV PUSH PRN (04:45)
[2017-12-07] MEDS ORDERED: ACETAMINOPHEN 325 MG TAB PO PRN (04:45)
[2017-12-07] MEDS ORDERED: ONDANSETRON HCL 4 MG/2 ML VIAL IVP PRN (04:45)
[2017-12-07] MEDS ORDERED: LACTULOSE SYRUP 20 GM/30 ML CUP PO PRN (04:45)
[2017-12-07] MEDS: hydrALAZINE HCL 50 MG TAB PO SCH ×2 (05:22→13:49)
[2017-12-07] MEDS ORDERED: PRED50 PO (05:28)
[2017-12-07 05:57] LABS: BILIRUBIN, URINE NEG (NEG); BLOOD, URINE LARGE (NEG); GLUCOSE,URINE NEG (NEG); KETONE, URINE NEG (NEG); NITRITE,URINE NEG (NEG); PH, URINE 6.5 (5.0-8.5); URINE LEUKOCYTE ESTERASE NEG (NEG)
[2017-12-07 05:59] LABS: URINE COLOR PINK (YELLW/STRAW)
[2017-12-07 06:03] LABS: RBC, URINE 100-200 /hpf (0-3)
[2017-12-07] MEDS ORDERED: NS + KCL 20 MEQ INJ 1,000 ML IV SCH (07:30)
[2017-12-07] MEDS ORDERED: cloNIDine HCL 0.1 MG TAB PO PRN (08:00)
[2017-12-07] MEDS ORDERED: METOPROLOL TARTRATE 5 MG/5 ML VIAL IV PUSH PRN (08:00)
[2017-12-07] MEDS: INSULIN ASPART SUPPLEMENTAL SCALE SQ SCH ×2 (08:23→12:00)
[2017-12-07] MEDS ORDERED: ONDANSETRON HCL 4 MG/2 ML VIAL IV PUSH PRN (08:30)
--- NOTE | 2017-12-07 08:33 | HHI.HP ---
[facility] No Primary Care Physician Admission Diagnosis intractable abdominal pain Diagnoses: Chief Complaint: Diarrhea and nausea vomiting Travel History International Travel<30 Days: No Contact w/Intl Traveler <30 Da: No Traveled to Known Affected Are: No History of Present Illness 32-year-old white female being admitted for intractable abdominal pain. Patient reports being in her usual state of health until yesterday evening when she began experiencing diarrhea. This was followed by a combination of stabbing abdominal pain and nausea and vomiting. Diarrhea was nonbloody and did not respond to Imodium. States that the abdominal pain is at a steady level of 8 coming to the emergency room and that it would fluctuate off the charts. Did not take any pain medications or any [id number] medications at home to try to treat the pain. Denies any fevers but reports subjective chills. She is unsure if the abdominal pain began before or after the vomiting. Patient states that she has had a gastroenterology workup done in the past with 2 colonoscopies and an endoscopy as well as a PillCam study - the workup results of which she cannot recall clearly but she states that she is not on any particular restrictive diet or any prescribed medications for this. She does state that she was diagnosed with a stomach ulcer but cannot remember being diagnosed with any H. pylori infection. She states that liver cancer runs in the family and that her father just from it last month. Review of Systems Except as stated in HPI: all other systems reviewed are Neg Past Family Social History Past Medical History Stomach ulcer PCOS Hypertension Depression Past Surgical History Denies any abdominal surgeries Allergies: Coded Allergies: No Known Allergies (Verified Allergy, Unknown, 12/07/17) Family History Liver cancer in father, stomach ulcers in the family, no colorectal cancer Social History Reports smoking marijuana around 5 years ago; denies any tobacco use or any other illicit drug use. Was recently taking care of her father until he . Physical Exam Vital Signs Vital Signs Date Time Temp Pulse Resp B/P (MAP) Pulse Ox O2 Delivery O2 Flow Rate FiO2 12/07/17 07:39 12/07/17 07:32 109 16 186/89 (121) 96 Room Air 12/07/17 06:40 94 186/97 (126) 12/07/17 06:15 188/95 (126) 12/07/17 06:02 114 16 213/97 (135) 96 Room Air 12/07/17 05:23 131 218/116 (150) 100 Nasal Cannula 2.00 12/07/17 04:43 106 16 200/89 (126) 97 Nasal Cannula 2.00 12/07/17 04:09 108 16 200/94 (129) 96 Room Air 12/07/17 03:32 117 16 204/95 (131) 97 Room Air 12/07/17 03:22 126 95 12/07/17 02:47 98.3 125 18 212/117 (148) 96 Physical Exam VS: afebrile GENERAL: Young obese white female, lying in bed, no acute distress SKIN: Warm and dry. EYES: No scleral icterus. No injection or drainage. ENT: No nasal bleeding or discharge. NC, AT CARDIOVASCULAR: Regular rate and rhythm. no murmurs RESPIRATORY: No accessory muscle use. Clear to auscultation. Breath sounds equal bilaterally. GASTROINTESTINAL: Abdomen soft, obese; moderate tenderness to palpation in epigastrium and right upper and lower quadrants with no rebound and no guarding Extremities: No deformities but does have some moderate pedal edema BL which the patient states is normal for her with her amlodipine MUSCULOSKELETAL: grossly intact ROM in upper and lower extremities proximally; adequate muscle bulk and tone for age and habitus NEUROLOGICAL: Awake and alert. No obvious cranial nerve deficits. No facial droop nor slurred speech noted. PSYCHIATRIC: Appropriate mood and affect; insight and judgment normal. Laboratory Laboratory Tests Test 12/07/17 03:00 12/07/17 05:45 White Blood Count 11.1 Red Blood Count 5.41 Hemoglobin 12.9 Hematocrit 40.3 Mean Corpuscular Volume 74.5 Mean Corpuscular Hemoglobin 23.9 Mean Corpuscular Hemoglobin Concent 32.1 Red Cell Distribution Width 15.1 Platelet Count 262 Mean Platelet Volume 10.9 Neutrophils (%) (Auto) 85.3 Lymphocytes (%) (Auto) 8.1 Monocytes (%) (Auto) 3.8 Eosinophils (%) (Auto) 1.8 Basophils (%) (Auto) 1.0 Neutrophils # (Auto) 9.5 Lymphocytes # (Auto) 0.9 Monocytes # (Auto) 0.4 Eosinophils # (Auto) 0.2 Basophils # (Auto) 0.1 CBC Comment AUTO DIFF Differential Comment AUTO DIFF CONFIRMED Platelet Estimate NORMAL Platelet Morphology Comment NORMAL Blood Urea Nitrogen 15 Creatinine 0.91 Random Glucose 235 Total Protein 7.8 Albumin 3.3 Calcium Level 8.4 Alkaline Phosphatase 88 Aspartate Amino Transf (AST/SGOT) 76 Alanine Aminotransferase (ALT/SGPT) 82 Total Bilirubin 0.5 Sodium Level 135 Potassium Level 3.1 Chloride Level 98 Carbon Dioxide Level 28.8 Anion Gap 8 Estimat Glomerular Filtration Rate 71 Lipase 123 Urine Color PINK Urine Turbidity HAZY Urine pH 6.5 Urine Specific [place] 1.030 Urine Protein 100 Urine Glucose (UA) NEG Urine Ketones NEG Urine Occult Blood LARGE Urine Nitrite NEG Urine Bilirubin NEG Urine Leukocyte Esterase NEG Urine RBC 100-200 Urine WBC 3-5 Urine Squamous Epithelial Cells 6-8 Urine Bacteria NONE Microscopic Urinalysis Comment CULT NOT INDICATED Result Diagram: 12/07/1729912/07/17299 Imaging Last Impressions Abdomen/Pelvis CT 12/07/17302 Signed Impressions: Service Date/Time: Thursday, December 07, 2017 03:34 - CONCLUSION: 1. Chronic hepatic steatosis. 2. Chronic mild splenomegaly. 3. No acute findings in the abdomen and pelvis. Johnson Boggs MD Caprini VTE Risk Assessment Caprini VTE Risk Assessment: No/Low Risk (score <= 1) Caprini Risk Assessment Model Point Value = 1 Point Value = 2 Point Value = 3 Point Value = 5 Age 41-60 Minor surgery BMI > 25 kg/m2 Swollen legs Varicose veins or History of unexplained or recurrent spontaneous Oral contraceptives or hormone replacement Sepsis (< 1 month) Serious lung disease, including pneumonia (< 1 month) Abnormal pulmonary function Acute myocardial infarction Congestive heart failure (< 1 month) History of inflammatory bowel disease Medical patient at bed rest Age 61-74 Arthroscopic surgery Major open surgery (> 45 min) Laparoscopic surgery (> 45 min) Malignancy Confined to bed (> 72 hours) Immobilizing plaster cast Central venous access Age >= 75 History of VTE Family history of VTE Factor V Leiden Prothrombin [id number] Lupus anticoagulant Anticardiolipin antibodies Elevated serum homocysteine Heparin-induced thrombocytopenia Other congenital or acquired thrombophilia Stroke (< 1 month) Elective arthroplasty Hip, pelvis, or leg fracture Acute spinal cord injury (< 1 month) Prophylaxis Regimen Total Risk Factor Score Risk Level Prophylaxis Regimen 0-1 Low Early ambulation 2 Moderate Order ONE of the following: *Sequential Compression Device (SCD) *Heparin 5000 units SQ BID 3-4 Higher Order ONE of the following medications: *Heparin 5000 units SQ TID *Enoxaparin/Lovenox 40 mg SQ daily (WT < 150 kg, CrCl > 30 mL/min) *Enoxaparin/Lovenox 30 mg SQ daily (WT < 150 kg, CrCl > 10-29 mL/min) *Enoxaparin/Lovenox 30 mg SQ BID (WT < 150 kg, CrCl > 30 mL/min) AND/OR *Sequential Compression Device (SCD) 5 or more Highest Order ONE of the following medications: *Heparin 5000 units SQ TID (Preferred with Epidurals) *Enoxaparin/Lovenox 40 mg SQ daily (WT < 150 kg, CrCl > 30 mL/min) *Enoxaparin/Lovenox 30 mg SQ daily (WT < 150 kg, CrCl > 10-29 mL/min) *Enoxaparin/Lovenox 30 mg SQ BID (WT < 150 kg, CrCl > 30 mL/min) AND *Sequential Compression Device (SCD) Assessment and Plan Assessment and Plan Intractable abdominal pain - Needed IV pain medication the emergency room - CT scan is unremarkable for any acute etiologies - We'll obtain gallbladder ultrasound; if unremarkable we'll proceed with a HIDA scan and or consult gastroenterology given her history of an ulcer - Zofran when necessary nausea - IV fluids - pending UDS and c.diff pcr - possibly worsened with fatty liver Diarrhea - Differential of viral gastroenteritis versus other causes. We'll obtain C. difficile PCR AGUDELO - chronic, monitor, bilirubin wnl HTN - resume home meds DVT early ambulation Addendum: Patient had an unexpected rapid recovery from her symptoms. She is now tolerating by mouth intake well without the need for any further pain medications. No diarrhea recurring since this morning. Patient feels very comfortable and is wanting to go home. Patient has met maximum benefit from hospital physician is clinically stable for discharge. GB US negative. Physician Certification 2 Midnight Certification Type: Admission for Inpatient Services Order for Inpatient Services The services are ordered in accordance with Medicare regulations or non- Medicare payer requirements, as applicable. In the case of services not specified as inpatient-only, they are appropriately provided as inpatient services in accordance with the 2-midnight benchmark. Estimated LOS (days): 2 2 days is the estimated time the patient will need to remain in the hospital, assuming treatment plan goals are met and no additional complications. Post-Hospital Plan: Home Tyler Aguilar MD Dec 07, 2017 08:33
[2017-12-07] MEDS ORDERED: LISINOPRIL 10 MG TAB PO SCH (09:00)
[2017-12-07] MEDS ORDERED: DOCUSATE SODIUM 50 MG/SENNA 8.6 MG TAB PO SCH (09:00)
[2017-12-07] MEDS ORDERED: HYDROCHLOROTHIAZIDE 50 MG TAB PO SCH (09:00)
[2017-12-07] MEDS ORDERED: amLODIPine BESYLATE 5 MG TAB PO SCH (09:00)
[2017-12-07] MEDS ORDERED: SODIUM CHLORIDE 0.9% FLUSH 10 ML FLUSH IV FLUSH SCH (09:00)
[2017-12-07] MEDS ORDERED: METOPROLOL TARTRATE 50 MG TAB PO SCH (09:00)
--- NOTE | 2017-12-07 10:27 | RADRPT ---
EXAM DATE/TIME: 12/07/2017 09:56 [place] COMPARISON: No previous studies available for comparison. INDICATIONS : Right upper quadrant pain. Evaluate entire biliary tree. MEDICAL HISTORY : Hypertension. Right upper quadrant pain. Ovarian cysts. UTI. Liver disease. SURGICAL HISTORY : None. ENCOUNTER: Initial ACUITY: 2 days PAIN SCORE: 6/10 LOCATION: Right upper quadrant MEASUREMENTS: LIVER: 20.6 cm length COMMON DUCT: 6 mm RIGHT KIDNEY: 12.9 x 6.1 x 4.8 cm FINDINGS: LIVER: Liver is enlarged and demonstrates diffuse fatty infiltration. No focal hepatic mass is noted. No ariel iary ductal dilatation is noted. There is hepatopetal flow within the portal vein. COMMON DUCT: No intraluminal mass or stone visualized. GALLBLADDER: Contains no stones, demonstrates no wall thickening or pericholecystic fluid. PANCREAS: The visualized portions are within normal limits. RIGHT KIDNEY: No evidence of hydronephrosis, stone, or mass. CONCLUSION: Enlarged fatty liver. No biliary ductal dilatation. David Rosen MD on December 07, 2017 at 10:23 Board Certified Radiologist. This report was verified electronically.
[2017-12-07] MEDS ORDERED: HYDROCHLOROTHIAZIDE 25 MG TAB PO SCH (10:30)
[2017-12-07 10:55] LABS: HEMOGLOBIN A1C 7.6 % (4.3-6.0)
[2017-12-07 11:13] LABS: CHOLESTEROL/ HDL RATIO 3.06 RATIO; HDL CHOLESTEROL 52.8 MG/DL (40.0-60.0)
[2017-12-07] MEDS ORDERED: METO-426 PO (15:28)
[2017-12-07] MEDS ORDERED: SPIR25TA PO (15:28)
--- NOTE | 2017-12-07 15:31 | HHI.DCPOC ---
Discharge Care Plan Diagnosis: (1) Gastroenteritis (2) Hypertensive urgency Additional Problems Follow-up with your primary care doctor to have your electrolytes and her potassium levels rechecked since your blood pressure medications have been modified. Goals to Promote Your Health * To prevent worsening of your condition and complications * To maintain your health at the optimal level Directions to Meet Your Goals Take your medications as prescribed Follow your dietary instruction Follow activity as directed Keep your appointments as scheduled Take your immunizations and boosters as scheduled If your symptoms worsen call your PCP, if no PCP go to Urgent Care Center or Emergency Room Smoking is Dangerous to Your Health. Avoid second hand smoke Call the 24-hour hour crisis hotline for domestic abuse at Tyler Aguilar MD Dec 07, 2017 15:31
[2017-12-07] MEDS ORDERED: POTASSIUM CHLORIDE 10 MEQ CONTROLLED RELEASE TAB PO ONE (16:00)
[2017-12-08] MEDS ORDERED: POTASSIUM CHLORIDE 20 MEQ CONTROLLED RELEASE TAB PO SCH (09:00)
[2017-12-08] MEDS ORDERED: PANTOPRAZOLE SOD 40 MG DELAYED RELEASE TAB PO SCH (09:00)
== END 2017-12-07 16:24 | disposition home or self-care (01) | DRG 392 ==
LOC: PHED 02:44 → PHEDA 04:43 → PHICU 08:02 → OBSVTOIN 08:23
PROVIDERS: ADMIT Hospitalist; ATTEND Hospitalist
DX: K52.9 Noninfective gastroenteritis and colitis, unspecified (principal); Z68.43 Body mass index [BMI] 50.0-59.9, adult; K76.0 Fatty (change of) liver, not elsewhere classified; I10 Essential (primary) hypertension; F32.9 Major depressive disorder, single episode, unspecified; E66.9 Obesity, unspecified; F41.9 Anxiety disorder, unspecified; E11.9 Type 2 diabetes mellitus without complications; E28.2 Polycystic ovarian syndrome; I16.0 Hypertensive urgency
CPT/HCPCS: 74177; 76705; 80053; 80061; 80307; 81001; 82948; 83036; 83690; 85025; 96361; 96374; 96375; 96376; C9113; J1170; J1815; J2270; J2405; J3480; J7030; Q9967